=== PATIENT | female | born 2000 | race Caucasian/White ===

== ENCOUNTER 2021-05-22 20:47 | Inpatient (IN) | payer OTHER, SELFPAY ==
--- NOTE | 2021-05-22 20:52 | ED_ITS ---
HPI - Overdose General Chief Complaint: Psychiatric Symptoms Stated Complaint: overdose Time Seen by Provider: 05/22/21 20:52 Source: patient and EMS Mode of arrival: EMS Limitations: no limitations History of Present Illness complaint: intentional overdose Onset (ago): minute(s) (10) Timing confirmed by: other (self) Substance Ingested acetaminophen: Strength of Substance: 500 Number of Pills Ingested: 5 Total Dose: 2500 Intent: suicide attempt How Overdose Was Discovered: called family/friend Context: Intentional Overdose: other Associated symptoms: depression Treatments Prior to Arrival: none Related Data Home Medications Medication Instructions Recorded Confirmed vitamin with calcium 1 tab PO DAILY 05/22/21 05/22/21 no.72-iron 27 mg-folic acid 1 mg tablet (M- Plus) Allergies Allergy/AdvReac Type Severity Reaction Status Date / Time No Known Allergies Allergy Unverified 04/13/20 16:38 [No Known Allergies*] Review of Systems Review of Systems: Constitutional : No Fever, No Chills ENT/Mouth : No Ear Pain, No Nasal Congestion, No sore throat Eyes: No Eye Pain, No Swelling, No Redness Cardiovascular : No Chest Pain, No SOB Respiratory : No Cough, No Sputum, No Dyspnea Gastrointestinal : No Nausea, No Vomiting, No Diarrhea, No Hematochezia, No Melena Genitourinary : No Dysuria, No Urinary Frequency, No Hematuria Musculoskeletal : No Myalgias Skin : No Skin Lesions, No rash Neuro : No Weakness, No Numbness, No Paresthesias, No Dizziness, No Headache Psych : positive Anxiety, positive Depression, positive SI no HI Heme/Lymph: No Lymphadenopathy Endocrine : No Polyuria, No Polydipsia All other systems reviewed and are negative [facility] Past Medical History Attestation statement: The following information was validated with the patient. Medical History Asthma Eczema Social History Social History (Updated 05/22/21 @ 21:07 by Dianna Brock DO) Patient Tobacco Use Status: Never used Tobacco Use of substances other than those prescribed or required for medical reasons: No Advance Directives: No Advance Directives Information Provided: Yes Patient : No Physical Exam Vital Signs: Vital Signs: Last Vital Signs Temp 98.6 F 05/22/21 21:03 Pulse 86 05/22/21 21:03 Resp 20 05/22/21 21:03 BP 117/88 05/22/21 21:03 Pulse Ox 96 05/22/21 21:03 Body Mass Index 30.9 Appearance: Alert. Oriented X3. No acute distress. Tearful Eyes: Pupils equal, round and reactive to light. ENT: Pharynx normal. Neck: Normal inspection. Neck supple. CVS: Normal heart rate and rhythm. Pulses normal. Respiratory: No respiratory distress. Breath sounds normal. Abdomen: Soft and nontender. Skin: Skin warm and dry. Normal skin color. Normal skin turgor. Extremities: No lower extremity edema. No calf ttp Neuro: Oriented X 3. No motor deficit. No sensory deficit. Cn2-12 intact Psych: tearful and anxious Course Course Course Narrative: repeat testing negative, tylenol level 8 - not toxic, medically cleared for BHN Physician observation started at 134am Patient placed in physician observation because the patient needed more time for BHN to evaluate her post SI attempt. At the time observation was started the patient's vitals were stable, patient is alert and oriented, Neuro: nonfocal, CV RRR, Lungs clear MDM - Overdose MDM Narrative Medical decision making narrative: 21 yo female with here with c/o SI she took 5 tabs of 500mg tylenol just prior to arrival in SI attempt. At this time labs, APAP x 2 levels, PO charcoal - once medically cleared BHN consult Lab Data Result diagrams: 05/22/21 21:34 05/23/21 01:04 Labs: Lab Results 05/22/21 05/22/21 05/22/21 Range/Units 21:06 21:06 21:06 WBC (4.8-10.8) X10*3/uL RBC (4.20-5.50) X10*6/uL Hgb (12.0-16.0) g/dl Hct (37-47) % MCV (80-98) fL MCH (27.0-33.0) pg MCHC (31.0-35.0) g/dl RDW (11.0-16.0) % Plt Count (160-400) X10*3/uL MPV (9.4-12.3) fL Immature Gran % (Auto) (0.0-0.4) % Neut % (Auto) (45-73) % Lymph % (Auto) (20-40) % [place] % (Auto) (2-11) % Eos % (Auto) (0-4) % Baso % (Auto) (0-2) % Lymph # (Auto) (1.2-4.9) X10*3/uL [place] # (Auto) (0.1-1.2) X10*3/uL Eos # (Auto) (0.0-0.4) X10*3/uL Baso # (Auto) (0.0-0.2) X10*3/uL Abs Immat Gran (auto) (0.00-0.03) X10*3/uL Absolute Neuts (auto) (2.0-8.3) X10*3/uL Absolute Nucleated RBC (0.0-0.012) X10*3/uL Nucleated RBC % (auto) (0.0-0.2) /100WBC VBG pH (7.32-7.43) VBG pCO2 mmHg VBG pO2 mmHg VBG HCO3 (22-26) mmol/L VBG O2 Saturation % VBG Base Excess mmol/L Sodium (135-145) mmol/L Potassium (3.3-5.1) mmol/L Chloride (96-108) mmol/L Carbon Dioxide (22-29) mmol/L Anion Gap (12-20) BUN (9-16) mg/dL Creatinine (0.5-1.4) mg/dL Estim Creat Clear Calc Estimated GFR Random Glucose (60-115) mg/dL Calcium (8.4-10.2) mg/dL Magnesium (1.6-2.6) mg/dL Total Bilirubin (0.0-1.0) mg/dL Direct Bilirubin (0.0-0.5) mg/dL AST (5-31) U/L ALT (0-31) U/L Alkaline Phosphatase (39-117) U/L Total Protein (6.5-8.0) g/dL Albumin (3.5-5.0) g/dL Lipase (8-78) U/L Beta HCG, Quant mIU/mL Specimen Comment Urine Color YELLOW Urine Appearance HAZY Urine pH 6.0 (5.0-8.0) Ur Specific [place] >= 1.030 H (1.005-1.025) Urine Protein 2+ H (NEG-TRACE) MG/DL Urine Glucose (UA) NEG (NEG) MG/DL Urine Ketones 5 (NEG) MG/DL Urine Blood 3+ H (NEG) Urine Nitrite NEG (NEG) Ur Leukocyte Esterase NEG (NEG) Urine RBC 1-4 (0) /HPF Urine WBC 0 (0-4) /HPF Ur Squamous Epith Cells 1+ /LPF Urine Bacteria 1+ /LPF Urine Mucus 1+ /LPF Salicylates (15-30) mg/dL Urine Opiates Screen POSITIVE H (Not Detect) Urine Fentanyl Screen POSITIVE H (Not Detect) Acetaminophen (<30) mcg/mL Ur Barbiturates Screen Not Detected (Not Detect) Ur Phencyclidine Scrn Not Detected (Not Detect) Ur Amphetamines Screen Not Detected (Not Detect) U Benzodiazepines Scrn Not Detected (Not Detect) Urine Cocaine Screen Not Detected (Not Detect) U Marijuana (THC) Screen POSITIVE H (Not Detect) Ethyl Alcohol mg/dL COVID-19 ([facility]LIN) Negative (Negative) COVID-19 Clin Com See Note 05/22/21 05/22/21 05/22/21 Range/Units 21:33 21:33 21:34 WBC 14.2 H (4.8-10.8) X10*3/uL RBC 5.58 H (4.20-5.50) X10*6/uL Hgb 16.1 H (12.0-16.0) g/dl Hct 48.8 H (37-47) % MCV 87.5 (80-98) fL MCH 28.9 (27.0-33.0) pg MCHC 33.0 (31.0-35.0) g/dl RDW 13.3 (11.0-16.0) % Plt Count 310 (160-400) X10*3/uL MPV 10.7 (9.4-12.3) fL Immature Gran % (Auto) 0.3 (0.0-0.4) % Neut % (Auto) 62.3 (45-73) % Lymph % (Auto) 27.7 (20-40) % [place] % (Auto) 7.3 (2-11) % Eos % (Auto) 1.7 (0-4) % Baso % (Auto) 0.7 (0-2) % Lymph # (Auto) 3.9 (1.2-4.9) X10*3/uL [place] # (Auto) 1.0 (0.1-1.2) X10*3/uL Eos # (Auto) 0.2 (0.0-0.4) X10*3/uL Baso # (Auto) 0.1 (0.0-0.2) X10*3/uL Abs Immat Gran (auto) 0.04 H (0.00-0.03) X10*3/uL Absolute Neuts (auto) 8.8 H (2.0-8.3) X10*3/uL Absolute Nucleated RBC 0.000 (0.0-0.012) X10*3/uL Nucleated RBC % (auto) 0.0 (0.0-0.2) /100WBC VBG pH (7.32-7.43) VBG pCO2 mmHg VBG pO2 mmHg VBG HCO3 (22-26) mmol/L VBG O2 Saturation % VBG Base Excess mmol/L Sodium 143 (135-145) mmol/L Potassium 3.6 (3.3-5.1) mmol/L Chloride 108 (96-108) mmol/L Carbon Dioxide 17 L (22-29) mmol/L Anion Gap 22 H (12-20) BUN 7 L (9-16) mg/dL Creatinine 0.92 (0.5-1.4) mg/dL Estim Creat Clear Calc 98.3 Estimated GFR > 60 Random Glucose 64 (60-115) mg/dL Calcium 10.1 (8.4-10.2) mg/dL Magnesium 1.9 (1.6-2.6) mg/dL Total Bilirubin 0.7 (0.0-1.0) mg/dL Direct Bilirubin 0.3 (0.0-0.5) mg/dL AST 31 (5-31) U/L ALT 25 (0-31) U/L Alkaline Phosphatase 102 (39-117) U/L Total Protein 8.6 H (6.5-8.0) g/dL Albumin 5.0 (3.5-5.0) g/dL Lipase 13 (8-78) U/L Beta HCG, Quant < 2 mIU/mL Specimen Comment Urine Color Urine Appearance Urine pH (5.0-8.0) Ur Specific [place] (1.005-1.025) Urine Protein (NEG-TRACE) MG/DL Urine Glucose (UA) (NEG) MG/DL Urine Ketones (NEG) MG/DL Urine Blood (NEG) Urine Nitrite (NEG) Ur Leukocyte Esterase (NEG) Urine RBC (0) /HPF Urine WBC (0-4) /HPF Ur Squamous Epith Cells /LPF Urine Bacteria /LPF Urine Mucus /LPF Salicylates < 5.0 L (15-30) mg/dL Urine Opiates Screen (Not Detect) Urine Fentanyl Screen (Not Detect) Acetaminophen 21 (<30) mcg/mL Ur Barbiturates Screen (Not Detect) Ur Phencyclidine Scrn (Not Detect) Ur Amphetamines Screen (Not Detect) U Benzodiazepines Scrn (Not Detect) Urine Cocaine Screen (Not Detect) U Marijuana (THC) Screen (Not Detect) Ethyl Alcohol 51 mg/dL COVID-19 ([facility]) (Negative) COVID-19 Clin Com 05/22/21 05/23/21 05/23/21 Range/Units 21:40 01:04 01:27 WBC (4.8-10.8) X10*3/uL RBC (4.20-5.50) X10*6/uL Hgb (12.0-16.0) g/dl Hct (37-47) % MCV (80-98) fL MCH (27.0-33.0) pg MCHC (31.0-35.0) g/dl RDW (11.0-16.0) % Plt Count (160-400) X10*3/uL MPV (9.4-12.3) fL Immature Gran % (Auto) (0.0-0.4) % Neut % (Auto) (45-73) % Lymph % (Auto) (20-40) % [place] % (Auto) (2-11) % Eos % (Auto) (0-4) % Baso % (Auto) (0-2) % Lymph # (Auto) (1.2-4.9) X10*3/uL [place] # (Auto) (0.1-1.2) X10*3/uL Eos # (Auto) (0.0-0.4) X10*3/uL Baso # (Auto) (0.0-0.2) X10*3/uL Abs Immat Gran (auto) (0.00-0.03) X10*3/uL Absolute Neuts (auto) (2.0-8.3) X10*3/uL Absolute Nucleated RBC (0.0-0.012) X10*3/uL Nucleated RBC % (auto) (0.0-0.2) /100WBC VBG pH 7.36 (7.32-7.43) VBG pCO2 35 mmHg VBG pO2 48 mmHg VBG HCO3 20 L (22-26) mmol/L VBG O2 Saturation 71.0 % VBG Base Excess -4.5 mmol/L Sodium 140 (135-145) mmol/L Potassium 4.0 (3.3-5.1) mmol/L Chloride 105 (96-108) mmol/L Carbon Dioxide 21 L (22-29) mmol/L Anion Gap 18 (12-20) BUN 7 L (9-16) mg/dL Creatinine 0.82 (0.5-1.4) mg/dL Estim Creat Clear Calc 110.2 Estimated GFR > 60 Random Glucose 77 (60-115) mg/dL Calcium 9.7 (8.4-10.2) mg/dL Magnesium (1.6-2.6) mg/dL Total Bilirubin 0.8 (0.0-1.0) mg/dL Direct Bilirubin 0.3 (0.0-0.5) mg/dL AST 31 (5-31) U/L ALT 24 (0-31) U/L Alkaline Phosphatase 98 (39-117) U/L Total Protein 8.1 H (6.5-8.0) g/dL Albumin 4.8 (3.5-5.0) g/dL Lipase (8-78) U/L Beta HCG, Quant mIU/mL Specimen Comment DELAY Urine Color Urine Appearance Urine pH (5.0-8.0) Ur Specific [place] (1.005-1.025) Urine Protein (NEG-TRACE) MG/DL Urine Glucose (UA) (NEG) MG/DL Urine Ketones (NEG) MG/DL Urine Blood (NEG) Urine Nitrite (NEG) Ur Leukocyte Esterase (NEG) Urine RBC (0) /HPF Urine WBC (0-4) /HPF Ur Squamous Epith Cells /LPF Urine Bacteria /LPF Urine Mucus /LPF Salicylates < 5.0 L (15-30) mg/dL Urine Opiates Screen (Not Detect) Urine Fentanyl Screen (Not Detect) Acetaminophen 8 (<30) mcg/mL Ur Barbiturates Screen (Not Detect) Ur Phencyclidine Scrn (Not Detect) Ur Amphetamines Screen (Not Detect) U Benzodiazepines Scrn (Not Detect) Urine Cocaine Screen (Not Detect) U Marijuana (THC) Screen (Not Detect) Ethyl Alcohol mg/dL COVID-19 ([facility]) (Negative) COVID-19 Clin Com ECG Data Attestation: I personally reviewed and interpreted this ECG as follows: ECG interpretation date: 05/22/21 ECG interpretation time: 23:27 Interpretation: Rate: 61 Rhythm: NSR [place]: left, LVH Normal P waves. Normal GILBERT. Normal QRS complex. ST T wave : normal no SHIVA qTC: normal prior studies: no acute ischemia The study has been interpreted contemporaneously by me. . Discharge Plan Discharge Clinical Impression: Overdose by acetaminophen Qualifiers: Encounter type: initial encounter Injury intent: intentional self-harm Qualified Code(s): T39.1X2A - Poisoning by 4-Aminophenol derivatives, intentional self-harm, initial encounter Prescriptions: No Action M- Plus 27 mg iron- 1 mg tablet 1 tab PO DAILY RF: 0
--- NOTE | 2021-05-22 20:56 | ECG_ITS ---
Test Reason : MEDICAL CLEARANCE Blood Pressure : / mmHG Vent. Rate : 061 BPM Atrial Rate : 061 BPM P-R Int : 134 ms QRS Dur : 088 ms QT Int : 408 ms P-R-T Axes : 032 -24 010 degrees QTc Int : 410 ms Sinus rhythm with marked sinus arrhythmia Early repolarization Minimal voltage criteria for LVH, may be normal variant ( R in aVL ) Borderline ECG No previous ECGs available Referred By: Dianna Brock Electronically Signed By:YANNICK FLORES MD
[2021-05-22 21:03] VITALS: BP 117/88; PULSE 86; RESP 20; TEMP 37; O2SAT 96; BMI 30.9
[2021-05-22] MEDS: Activated charcoaL 50 GM/240 ML ORAL.SUSP PO (21:19)
[2021-05-22 21:28] LABS: Appearance Urine HAZY; Color Urine YELLOW; Glucose Urine UA NEG (NEG); Leukocyte Esterase Urine NEG (NEG); Nitrite Urine NEG (NEG); Specific Gravity - Urine >= 1.030 (1.005-1.025); UACC Culture Trigger NO; Urine Blood 3+ (NEG); Urine Ketones 5 MG/DL (NEG); Urine Protein 2+ MG/DL (NEG-TRACE)
--- NOTE | 2021-05-22 21:30 | PHA.MEDREC ---
Pharmacy Consult ? Medication Reconciliation Pharmacy has completed the medication reconciliation. Reports only taking pre-elizabeth vitamins Jerica Hearn, YaraD
[2021-05-22 21:35] LABS: Bacteria Urine 1+ /LPF; Mucus Urine 1+ /LPF; Squamous Epithelial Cell Urine 1+ /LPF
[2021-05-22 21:37] LABS: WBC Urine 0 /HPF (0-4)
[2021-05-22 21:38] LABS: COVID-19 Test Negative (Negative); IDNOW Serial# 55D5AD1C
[2021-05-22 21:40] LABS: MANUAL DIFF FLAG NO
[2021-05-22 21:43] LABS: Basophils Absolute Auto 0.1 X10*3/uL (0.0-0.2); Basophils Percent Auto 0.7 % (0-2); Eosinophils Absolute Auto 0.2 X10*3/uL (0.0-0.4); Eosinophils Percent Auto 1.7 % (0-4); Hematocrit 48.8 % (37-47); Hemoglobin 16.1 g/dl (12.0-16.0); Imm Gran Abs Auto 0.04 X10*3/uL (0.00-0.03); Imm Gran Pct Auto 0.3 % (0.0-0.4); Lymphocytes Absolute Auto 3.9 X10*3/uL (1.2-4.9); Lymphocytes Percent Auto 27.7 % (20-40); Mean Corpuscular Hemoglobin 28.9 pg (27.0-33.0); Mean Corpuscular Volume 87.5 fL (80-98); Mean Platelet Volume 10.7 fL (9.4-12.3); Monocytes Percent Auto 7.3 % (2-11); Neutrophils Absolute Auto 8.8 X10*3/uL (2.0-8.3); Neutrophils Percent Auto 62.3 % (45-73); Platelet Count 310 X10*3/uL (160-400); Red Blood Count 5.58 X10*6/uL (4.20-5.50); Red Cell Distribution Width 13.3 % (11.0-16.0); White Blood Count 14.2 X10*3/uL (4.8-10.8)
[2021-05-22 21:43] LABS: Amphetamine Screen Urine Not Detected (Not Detect); Barbiturates, Urine Not Detected (Not Detect); Benzodiazepines Screen Urine Not Detected (Not Detect); Cannabinoid Screen Urine POSITIVE (Not Detect); Cocaine Screen Urine Not Detected (Not Detect); Fentanyl, urine POSITIVE (Not Detect); Opiate Screen Urine POSITIVE (Not Detect); Phencyclidine Screen Urine Not Detected (Not Detect)
[2021-05-22 21:47] LABS: VBG Base Excess -4.5 mmol/L; VBG HCO3 20 mmol/L (22-26); VBG pCO2 35 mmHg; VBG pH 7.36 (7.32-7.43); VBG pO2 48 mmHg
[2021-05-22 21:53] LABS: Ethanol 51 mg/dL
[2021-05-22 21:59] LABS: Venous Blood Gas Refer to POC result
[2021-05-22 22:02] LABS: Alanine Aminotransferase 25 U/L (0-31); Alkaline Phosphatase 102 U/L (39-117); Anion Gap 22 (12-20); Aspartate Amino Transferase 31 U/L (5-31); Bilirubin Direct 0.3 mg/dL (0.0-0.5); Bilirubin Total 0.7 mg/dL (0.0-1.0); Blood Urea Nitrogen 7 mg/dL (9-16); Calcium 10.1 mg/dL (8.4-10.2); Carbon Dioxide 17 mmol/L (22-29); Chloride 108 mmol/L (96-108); Creatinine Clr Calc Pharmacy 98.3; Estimated Glomerular Filt Rate > 60; Glucose Random 64 mg/dL (60-115); Lipase 13 U/L (8-78); Magnesium 1.9 mg/dL (1.6-2.6); Potassium 3.6 mmol/L (3.3-5.1); Salicylate < 5.0 mg/dL (15-30); Sodium 143 mmol/L (135-145); Total Protein 8.6 g/dL (6.5-8.0)
--- NOTE | 2021-05-22 22:23 | MHC.CARE ---
CARE team aware of pt, who arrived via ambulance secondary to an intentional tylenol overdose. Pt will need to be medically cleared before evaluation. She has [employer] insurance and will be seen by CARE team in the morning.
[2021-05-22 22:56] LABS: Acetaminophen LAB 21 mcg/mL (<30)
[2021-05-22 23:04] LABS: HCG Quantitative < 2 mIU/mL
[2021-05-23 01:28] LABS: Delay - Chemistry DELAY
[2021-05-23 01:28] LABS: Acetaminophen LAB 8 mcg/mL (<30); Alanine Aminotransferase 24 U/L (0-31); Albumin Level 4.8 g/dL (3.5-5.0); Alkaline Phosphatase 98 U/L (39-117); Anion Gap 18 (12-20); Aspartate Amino Transferase 31 U/L (5-31); Bilirubin Direct 0.3 mg/dL (0.0-0.5); Bilirubin Total 0.8 mg/dL (0.0-1.0); Blood Urea Nitrogen 7 mg/dL (9-16); Calcium 9.7 mg/dL (8.4-10.2); Carbon Dioxide 21 mmol/L (22-29); Chloride 105 mmol/L (96-108); Creatinine Clr Calc Pharmacy 110.2; Estimated Glomerular Filt Rate > 60; Glucose Random 77 mg/dL (60-115); Sodium 140 mmol/L (135-145); Total Protein 8.1 g/dL (6.5-8.0)
[2021-05-23 02:15] LABS: Salicylate < 5.0 mg/dL (15-30)
[2021-05-23 05:39] VITALS: BP 114/78; PULSE 58; RESP 16; TEMP 37.2; O2SAT 97
--- NOTE | 2021-05-23 05:59 | PC.NURSE ---
Patient slept through the night, patient was at time tearful but after making phone call patient calmed down, labs were done twice result unremarkable, since the amount ingested of Tylenol was 3500 mg, poison control was not notified per provider, patient is clinically stable, no distress observed/reported, patient will be evaluated by Care Team in the morning, behavior appropriate, patient appears stressed due to living situation, patient was visited by her brother was positive visit, will continue to monitor.
--- NOTE | 2021-05-23 07:16 | PC.NURSE ---
patient appears to remain asleep at present, respirations are even and unlabored, patient appears in no distress
[2021-05-23 09:06] VITALS: BP 110/80; PULSE 65; RESP 16; TEMP 36.8; O2SAT 98
--- NOTE | 2021-05-23 12:54 | MHC.RECOVSUP ---
Recovery Support note: Patient is a 21 year old [place] speaking female who presented to [facility] after an intentional Tylenol overdose. CARE Team requested the Recovery Support Team meet with patient to discuss recovery supports. This contract technical writer met with patient in BH3. Patient reports using one pill of what she believes to be Percocet daily and that this pattern began two months ago. Patient reports a desire to stop using however reports withdrawal symptoms have prevented her from stopping. Discussed medications for opiate use disorder with patient. Patient accepted education on Suboxone and expressed interest in getting started on the medication. Patient reports she lives within walking distance of the [facility] and that she would like to establish services with their Suboxone clinic. Patient will be admitting to [facility] and would like to get started on Suboxone while in the Hospital. Discussed outpatient recovery supports with patient. Case discussed with CARE Team and Recovery Support Team.
[2021-05-23 19:46] VITALS: BP 118/83; PULSE 76; RESP 18; TEMP 36.6; O2SAT 96
[2021-05-23] MEDS: hydrOXYzine HCL 25 MG TABLET PO (21:49)
[2021-05-23] MEDS: traZODone HCL 50 MG TABLET PO (22:50)
--- NOTE | 2021-05-24 00:39 | PC.ADMIT ---
Patient admitted to [facility]3 at 1945 from the ED. Patient is a 21 year old female that attempted suicide by ingestion of 5 (500 mg) Tylenol tablets . Patient stated that she was overwhelmed this week due to financial issues and is in danger of being evicted from her home. Patient UTOX was positive for opiates and Fentanyl. Patient covid negative. Patient signed a CV. Patient reports feeling depressed and overwhelmed with life, States she made a stupid mistake Patient denies SI/HI and contracts for safety on the uit. Patient denies any AH/VH. Patient was cooperative with nurse assessment and placed on 15 minute safety visual checks.
[2021-05-24 07:00] VITALS: BMI 28.7
--- NOTE | 2021-05-24 11:44 | MHC.RECOVRN ---
T/w met with pt after consult placed to Addiction Medicine for pt interested in Suboxone. Pt reports using Percocet 30 mg daily, IN, x 4 months. Pt was not aware the pills were pressed fentanyl. Pts last use 05/22 around 6PM. Pt currently reports hot/cold flashes and a slightly runny nose. Pt denies other withdrawal symptoms including body aches and upset stomach. Pt denies ever feeling severe withdrawal. Pt began using 4 months ago when a friend said try this. Pt reports using marijuana, denies other substances. Pt has never injected substances. Pt educated regarding Suboxone and other MOUD, denies questions. Pt would like to initiate Suboxone while inpatient and follow up with the [facility] after discharge. Pt provided with written information regarding MOUD and recovery resources. Pt has been ordered Suboxone 2/0.5 mg film by psych provider. Discussed with Camilla Toney APRN. Will continue to follow.
[2021-05-24] MEDS: Multivitamin TABLET 1 TAB PO (12:01)
[2021-05-24 14:00] VITALS: BP 120/72; PULSE 87; RESP 16; TEMP 36.7; O2SAT 97
[2021-05-24] MEDS: Buprenorphine/Naloxone 2/0.5mg FILM 1 FILM SUBLINGUAL (15:43)
[2021-05-24 18:00] VITALS: BP 108/73; PULSE 96; RESP 88; TEMP 36.7; O2SAT 97
--- NOTE | 2021-05-24 18:05 | HO.ADDICTCON ---
History of Present Illness Date of Service: 05/24/2021 Chief Complaint: suicide attempt Reason for Consult: OUD would like to start buprenorphine Requesting physician: Pj Joyce Discussed with referring provider: Yes Sources of Information: patient interviewed and chart reviewed HPI Narrative: Patient is a 21 year old female currently psychiatrically admitted following tylenol overdose. Consult requested as patient reported she has been using percocet and intereted in treatment Patient seen in common area of M3. Wrapped in blanket, very pleasant and engaged in interview. Reports she has been buying percocet on the street since this summer and using about 30mg a day--but also clarifying that she does not always use daily. She has tried to stop on her own, but withdrawal sx always led her to use again. She had been contemplating entering treatment prior to this admission. At time of interview patient reporting very mild withdrawal sx--and states that she has never experienced sever withdrawal Denies any history of opioid OD Denies any other substance use including alcohol Denies any history of MOUD or other treatment including ATS admission Reports family history of MIROSLAVA (father and grandfather) She lives with her boyfriend and is employed at a local [employer] while she identifies her family as a strong support, she has not shared with them that she is admitted as she does not want to be a burden Review of Systems Comments: patient reporting mild body aches, rhinorrhea, chills and anxiety denies nausea,loose stools Diagnostics Vital Signs (24Hr): Vital Signs - 24 hr 05/23/21 19:46 05/24/21 14:00 Temperature 97.8 F 98.0 F Pulse Rate 76 87 Respiratory Rate 18 16 Blood Pressure 118/83 120/72 Pulse Oximetry 96 97 Body Mass Index 28.7 Labs Results: 05/22/21 21:34 05/23/21 01:04 Labs: Laboratory Results - last 48 hr 05/22/21 05/22/21 05/22/21 21:06 21:06 21:06 WBC RBC Hgb Hct MCV MCH MCHC RDW Plt Count MPV Immature Gran % (Auto) Neut % (Auto) Lymph % (Auto) [place] % (Auto) Eos % (Auto) Baso % (Auto) Lymph # (Auto) [place] # (Auto) Eos # (Auto) Baso # (Auto) Abs Immat Gran (auto) Absolute Neuts (auto) Absolute Nucleated RBC Nucleated RBC % (auto) VBG pH VBG pCO2 VBG pO2 VBG HCO3 VBG O2 Saturation VBG Base Excess Sodium Potassium Chloride Carbon Dioxide Anion Gap BUN Creatinine Estim Creat Clear Calc Estimated GFR Random Glucose Calcium Magnesium Total Bilirubin Direct Bilirubin AST ALT Alkaline Phosphatase Total Protein Albumin Lipase Beta HCG, Quant Specimen Comment Urine Color YELLOW Urine Appearance HAZY Urine pH 6.0 Ur Specific [place] >= 1.030 H Urine Protein 2+ H Urine Glucose (UA) NEG Urine Ketones 5 Urine Blood 3+ H Urine Nitrite NEG Ur Leukocyte Esterase NEG Urine RBC 1-4 Urine WBC 0 Ur Squamous Epith Cells 1+ Urine Bacteria 1+ Urine Mucus 1+ Salicylates Urine Opiates Screen POSITIVE H Urine Fentanyl Screen POSITIVE H Acetaminophen Ur Barbiturates Screen Not Detected Ur Phencyclidine Scrn Not Detected Ur Amphetamines Screen Not Detected U Benzodiazepines Scrn Not Detected Urine Cocaine Screen Not Detected U Marijuana (THC) Screen POSITIVE H Ethyl Alcohol COVID-19 (DAYLIN) Negative COVID-19 Clin Com See Note 05/22/21 05/22/21 05/22/21 21:33 21:33 21:34 WBC 14.2 H RBC 5.58 H Hgb 16.1 H Hct 48.8 H MCV 87.5 MCH 28.9 MCHC 33.0 RDW 13.3 Plt Count 310 MPV 10.7 Immature Gran % (Auto) 0.3 Neut % (Auto) 62.3 Lymph % (Auto) 27.7 [place] % (Auto) 7.3 Eos % (Auto) 1.7 Baso % (Auto) 0.7 Lymph # (Auto) 3.9 [place] # (Auto) 1.0 Eos # (Auto) 0.2 Baso # (Auto) 0.1 Abs Immat Gran (auto) 0.04 H Absolute Neuts (auto) 8.8 H Absolute Nucleated RBC 0.000 Nucleated RBC % (auto) 0.0 VBG pH VBG pCO2 VBG pO2 VBG HCO3 VBG O2 Saturation VBG Base Excess Sodium 143 Potassium 3.6 Chloride 108 Carbon Dioxide 17 L Anion Gap 22 H BUN 7 L Creatinine 0.92 Estim Creat Clear Calc 98.3 Estimated GFR > 60 Random Glucose 64 Calcium 10.1 Magnesium 1.9 Total Bilirubin 0.7 Direct Bilirubin 0.3 AST 31 ALT 25 Alkaline Phosphatase 102 Total Protein 8.6 H Albumin 5.0 Lipase 13 Beta HCG, Quant < 2 Specimen Comment Urine Color Urine Appearance Urine pH Ur Specific [place] Urine Protein Urine Glucose (UA) Urine Ketones Urine Blood Urine Nitrite Ur Leukocyte Esterase Urine RBC Urine WBC Ur Squamous Epith Cells Urine Bacteria Urine Mucus Salicylates < 5.0 L Urine Opiates Screen Urine Fentanyl Screen Acetaminophen 21 Ur Barbiturates Screen Ur Phencyclidine Scrn Ur Amphetamines Screen U Benzodiazepines Scrn Urine Cocaine Screen U Marijuana (THC) Screen Ethyl Alcohol 51 COVID-19 (DAYLIN) COVID-19 Culture Jam Com 05/22/21 05/23/21 05/23/21 21:40 01:04 01:27 WBC RBC Hgb Hct MCV MCH MCHC RDW Plt Count MPV Immature Gran % (Auto) Neut % (Auto) Lymph % (Auto) [place] % (Auto) Eos % (Auto) Baso % (Auto) Lymph # (Auto) [place] # (Auto) Eos # (Auto) Baso # (Auto) Abs Immat Gran (auto) Absolute Neuts (auto) Absolute Nucleated RBC Nucleated RBC % (auto) VBG pH 7.36 VBG pCO2 35 VBG pO2 48 VBG HCO3 20 L VBG O2 Saturation 71.0 VBG Base Excess -4.5 Sodium 140 Potassium 4.0 Chloride 105 Carbon Dioxide 21 L Anion Gap 18 BUN 7 L Creatinine 0.82 Estim Creat Clear Calc 110.2 Estimated GFR > 60 Random Glucose 77 Calcium 9.7 Magnesium Total Bilirubin 0.8 Direct Bilirubin 0.3 AST 31 ALT 24 Alkaline Phosphatase 98 Total Protein 8.1 H Albumin 4.8 Lipase Beta HCG, Quant Specimen Comment DELAY Urine Color Urine Appearance Urine pH Ur Specific [place] Urine Protein Urine Glucose (UA) Urine Ketones Urine Blood Urine Nitrite Ur Leukocyte Esterase Urine RBC Urine WBC Ur Squamous Epith Cells Urine Bacteria Urine Mucus Salicylates < 5.0 L Urine Opiates Screen Urine Fentanyl Screen Acetaminophen 8 Ur Barbiturates Screen Ur Phencyclidine Scrn Ur Amphetamines Screen U Benzodiazepines Scrn Urine Cocaine Screen U Marijuana (THC) Screen Ethyl Alcohol COVID-19 (DAYLIN) COVID-19 Clin Com Mental Status Exam Mental Status Exam Patient Appearance: Appropriate Patient Orientation: Person, Place, Time and Situation Level of Consciousness: Awake, Appropriate and Alert Patient Behavior: Cooperative Mood Description: Calm, Appropriate and Sad Affect Description: Blunted Patient Cognition Impaired: No Thought Process: Goal Oriented Judgement: Good Medications Medications Current Medications Acetaminophen (Acetaminophen 325 Mg Tablet) 650 mg PO Q6H PRN PRN Reason: Headache/Pain Mild Scale (1-3) Al Hydroxide/Mg Hydroxide (Magnesium Hydrox/Alum Hydrox 30 Ml Oral.Susp) 30 ml PO Q6H PRN PRN Reason: Heartburn/Nausea Albuterol Sulfate (Albuterol Sulfate 90 Mcg 8 Gm Inhaler) 2 puff INHALE RQ6H PRN PRN Reason: Shortness of Breath Buprenorphine/Naloxone (Buprenorphine/Naloxone 2/0.5mg Film) 1 film SUBLINGUAL DAILY NIGEL Clonidine HCl (Clonidine Hcl 0.1 Mg Tablet) 0.1 mg PO Q2H PRN; Protocol PRN Reason: opioid withdrawal Dicyclomine HCl (Dicyclomine Hcl 10 Mg Capsule) 10 mg PO QIDACHS PRN PRN Reason: stomach cramps Hydroxyzine HCl (Hydroxyzine Hcl 25 Mg Tablet) 25 mg PO BEDTIME PRN PRN Reason: Anxiety Last Admin: 05/23/21 21:49 Dose: 25 mg Documented by: Ibuprofen (Ibuprofen 800 Mg Tablet) 800 mg PO Q6H PRN PRN Reason: aches Loperamide HCl (Loperamide Hcl 2 Mg Capsule) 2 mg PO Q4H PRN PRN Reason: Diarrhea Magnesium Hydroxide (Milk Of Magnesia 30 Ml Oral.Susp) 30 ml PO DAILY PRN PRN Reason: Constipation Multivitamins/Vitamin C (Multivitamin Tablet) 1 tab PO DAILY NIGEL Last Admin: 05/24/21 12:01 Dose: 1 tab Documented by: Nicotine Polacrilex (Nicotine Polacrilex 2 Mg Gum) 2 mg BUCCAL Q2H PRN PRN Reason: Nicotine Cravings Trazodone HCl (Trazodone Hcl 50 Mg Tablet) 50 mg PO BEDTIME PRN PRN Reason: Insomnia Last Admin: 05/23/21 22:50 Dose: 50 mg Documented by: Triamcinolone Acetonide (Triamcinolone Acet 0.1 % Cream 15 Gm Tube) 1 appl TOPICAL DAILY NIGEL; Protocol Last Admin: 05/24/21 15:44 Dose: Not Given Documented by: Allergies Allergies Allergy/AdvReac Type Severity Reaction Status Date / Time No Known Allergies Allergy Unverified 04/13/20 16:38 [No Known Allergies*] Assessment & Plan Assessment & Plan (1) Opioid use disorder: Status: Acute Code(s): F11.90 - Opioid use, unspecified, uncomplicated Assessment and Plan: Patient to start suboxone 2mg when she feels ready (symptomatic) Reviewed goals of treatment side effects Follow up in AM to determine if dose needs to be increased discussed with RN, treating proivder and recovery support RN I spent ___40___ minutes with the patient and/or on the patient floor today, greater than?50% of which was spent counseling/coordinating care. PMFSH Past Medical History Medical History Asthma Eczema Social History Social History (Updated 05/22/21 @ 21:07 by Dianna Brock DO) Household Members: Significant Other Household Members Other:: none Housing: House Do you presently have visiting nurse or other home services: No Patient Tobacco Use Status: Current everyday Tobacco user Tobacco use type: Cigarette Cigarette Packs Per Day: 0.1 Cigarettes Per Day: 2.0 Smoked in Last 30 Days: Yes Patient Interested in Nicotine Replacement: No Patient Given Instructions on How to Stop Smoking: Yes Date Education Initiated: 05/23/21 Second Hand Smoke Exposure: Yes Use of substances other than those prescribed or required for medical reasons: No Substance Use Type: Other Substance Use Type Other:: fentyl daily Substance Use Frequency: Daily Last Used Substance: Days (ago) Currently Displaying Signs/Symptoms of Drug Intoxication Withdrawal: No Any prior treatment program specific to substance use: No Have you been hit, kicked, punched, or otherwise hurt by someone within the past year? If so, by whom?: No Do you feel safe in your current relationship?: Yes Is there a partner from a previous relationship who is making you feel unsafe now?: No Are you made to feel afraid or neglected: No Spiritual Healthcare Practices: none Confucianism Healthcare Practices: none Cultural Healthcare Practices: none Advance Directives: No Advance Directives Information Provided: Yes Advance Directives on File: No Healthcare Proxy: No Guardian: No Do you have thoughts of harming others: None Do you have a plan to hurt others: No Plan Recently lost weight without trying: No Eating poorly because of decreased appetite: No Nutrition Risks: No Nutritional Risk Patient : No : No Poor oral hygiene: No service: No Sexual orientation: Straight/Heterosexual
[2021-05-24] MEDS: Triamcinolone Acet 0.1 % Cream 15 GM TUBE 1 APPL TOPICAL (18:53)
[2021-05-24] MEDS: Nicotine Polacrilex 2 MG GUM BUCCAL (20:24)
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
[2021-05-24] MEDS: traZODone HCL 50 MG TABLET PO (23:40)
[2021-05-25] MEDS: Triamcinolone Acet 0.1 % Cream 15 GM TUBE 1 APPL TOPICAL (09:54)
[2021-05-25] MEDS: Multivitamin TABLET 1 TAB PO (09:54)
[2021-05-25] MEDS: Buprenorphine/Naloxone 2/0.5mg FILM 1 FILM SUBLINGUAL (09:54)
[2021-05-25] MEDS: Nicotine Polacrilex 2 MG GUM BUCCAL (11:16)
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
--- NOTE | 2021-05-25 13:36 | MHC.RECOVRN ---
Met with pt this morning to f/u regarding Suboxone initiation. Pt reports feeling better. Pt states I had the chills every day since I was here, the Suboxone definitely helped with that. Pt would like to continue with 2/0.5 mg film daily. SW has made f/u appt for pt at the [facility] and bridge script has been sent to pts pharmacy. Pt encouraged to reach out to t/w if questions or concerns arise. Discussed with Camilla Toney APRN.
== END 2021-05-25 12:45 | disposition home or self-care (01) | DRG 882 ==
LOC: HO.ED 21:16 → HO.PADLT16 05-23 18:45
PROVIDERS: Admitting Provider Psychiatry & Neurology Psychiatry; Emergency Provider Emergency Medicine; Visit Provider Psychiatry & Neurology Psychiatry
DX: F43.20 Adjustment disorder, unspecified (principal); R45.851 Suicidal ideations; F11.20 Opioid dependence, uncomplicated; F17.210 Nicotine dependence, cigarettes, uncomplicated; Z71.6 Tobacco abuse counseling; Z91.51 Personal history of suicidal behavior; Z20.822 Contact with and (suspected) exposure to COVID-19; Z79.899 Other long term (current) drug therapy
CPT/HCPCS: 36415; 80048; 80076; 80143; 80179; 80307; 81001; 82077; 82803; 83690; 83735; 84702; 85025; 87635; 93005; 99285

== ENCOUNTER 2021-06-06 23:41 | Emergency (ER) | payer OTHER, SELFPAY ==
--- NOTE | ~2021-06-06 | XR_ITS ---
EXAMINATION: XR CHEST CLINICAL INFORMATION: Shortness of breath COMPARISON: None TECHNIQUE: Frontal view of the chest was obtained. FINDINGS: The lungs are well expanded. There is no focal consolidation, edema, or effusion. No pneumothorax. The cardiomediastinal silhouette is within normal limits. No acute osseous abnormality. XR/XR chest 1V IMPRESSION: Clear lungs.
[2021-06-06 23:50] VITALS: BP 161/89; PULSE 119; RESP 22; TEMP 36.6; O2SAT 93; BMI 30.2
--- NOTE | 2021-06-06 23:58 | ECG_ITS ---
Test Reason : SOB Blood Pressure : / mmHG Vent. Rate : 120 BPM Atrial Rate : 120 BPM P-R Int : 152 ms QRS Dur : 086 ms QT Int : 314 ms P-R-T Axes : 075 093 030 degrees QTc Int : 443 ms Sinus tachycardia Rightward axis Borderline ECG When compared with ECG of 22-MAY-2021 23:24, Vent. rate has increased BY 59 BPM Questionable change in QRS axis T wave amplitude has decreased in Anterolateral leads Referred By: Roseann Hardy Electronically Signed By:YANNICK FLORES MD
--- NOTE | 2021-06-06 23:58 | ED_ITS ---
HPI - Asthma General Chief Complaint: Asthma <PHANI Pritchett - Last Filed: 06/07/21 02:30> Stated Complaint: SoB, asthma <PHANI Pritchett - Last Filed: 06/07/21 02:30> Time Seen by Provider: 06/06/21 23:54 <PHANI Pritchett Last Filed: 06/07/21 02:30> Source: patient <PHANI Pritchett Last Filed: 06/07/21 02:30> Mode of arrival: ambulatory <PHANI Pritchett Last Filed: 06/07/21 02:30> Limitations: no limitations <PHANI Pritchett Last Filed: 06/07/21 02:30> History of Present Illness HPI Narrative: 18-year-old female past medical history significant for asthma, and opiate use disorder presents to the emergency department with shortness of breath, and what feels like an asthma attack that is a little worse than usual that started around 4:00 p.m. today. Patient states that she took her albuterol inhaler about 10 times with no relief. Patient states that before 4:00 p.m. she was feeling fine she had a dry cough for a few days. She is not vaccinated against COVID-19. She is a current daily smoker. She has never required intubation for her asthma. She denies fevers, chills, chest pain, nausea, vomiting, abdominal pain. <PHANI Pritchett Last Filed: 06/07/21 02:30> MD complaint: asthma attack and shortness of breath <PHANI Pritchett Last Filed: 06/07/21 02:30> Onset (ago): hour(s) (8) <PHANI Pritchett Last Filed: 06/07/21 02:30> Severity: severe and worse than usual <PHANI Pritchett Last Filed: 06/07/21 02:30> Context: other (patient reports a cough dry in nature ) <PHANI Pritchett Last Filed: 06/07/21 02:30> Related Data Home Medications: Home Medications Medication Instructions Recorded Confirmed vitamin with calcium 1 tab PO DAILY 05/22/21 05/22/21 no.72-iron 27 mg-folic acid 1 mg tablet (M-Prince Plus) Previous Rx's Medication Instructions Recorded albuterol sulfate 90 mcg/actuation 2 puff INHALATION RQ6H PRN 30 Days 05/25/21 aerosol inhaler (Ventolin HFA) #1 g buprenorphine 2 mg-naloxone 0.5 mg 1 film SUBLINGUAL DAILY 7 Days #7 05/25/21 sublingual film (Suboxone) ea nicotine (polacrilex) 2 mg gum 2 mg BUCCAL Q2H PRN 30 Days #90 ea 05/25/21 triamcinolone acetonide 0.1 % 1 appl TOPICAL DAILY 30 Days #50 g 05/25/21 topical cream benzonatate 100 mg capsule 100 mg PO BID PRN #14 cap 06/07/21 prednisone 20 mg tablet 40 mg PO DAILY 5 Days #10 tab 06/07/21 <PHANI Pritchett - Last Filed: 06/07/21 02:30> Allergies/Adverse Reactions: Allergies Allergy/AdvReac Type Severity Reaction Status Date / Time No Known Allergies Allergy Verified 06/06/21 23:50 [No Known Allergies*] <PHANI Pritchett Last Filed: 06/07/21 02:30> Review of Systems Review of Systems: Constitutional : No Weight loss, No Fever, No Chills, No Fatigue, No Malaise ENT/Mouth : No sore throat, No Rhinorrhea Eyes: No Eye Pain, No Swelling, No Redness Cardiovascular : No Chest Pain, + SOB, No Dyspnea on Exertion, No Orthopnea, No Edema, No Palpitations Respiratory : + Cough, No Sputum, + Wheezing Gastrointestinal : No Nausea, No Vomiting, No Diarrhea, No Constipation, No abdominal Pain, No Hematochezia, No Melena Genitourinary : No Dysuria, No Urinary Frequency, No Hematuria, Musculoskeletal : No joint pain, No Myalgias, No Joint Swelling Skin : No Skin Lesions, No rash Neuro : No Weakness, No Numbness, No Dizziness, No Headache All other systems reviewed and are negative <PHANI Pritchett - Last Filed: 06/07/21 02:30> [facility] Past Medical History Attestation statement: The following information was validated with the patient. <PHANI Pritchett - Last Filed: 06/07/21 02:30> Source: old records reviewed and nursing notes reviewed <PHANI Pritchett - Last Filed: 06/07/21 02:30> Medical History: Medical History Asthma Eczema <PHANI Pritchett - Last Filed: 06/07/21 02:30> Social History Social History: Social History (Updated 05/22/21 @ 21:07 by Dianna Brock DO) Household Members: Significant Other Household Members Other:: none Housing: House Do you presently have visiting nurse or other home services: No Patient Tobacco Use Status: Current everyday Tobacco user Tobacco use type: Cigarette Cigarette Packs Per Day: 0.1 Cigarettes Per Day: 2.0 Second Hand Smoke Exposure: Yes Substance Use Type: Other Advance Directives: No Patient : No service: No Sexual orientation: Straight/Heterosexual <PHANI Pritchett - Last Filed: 06/07/21 02:30> Physical Exam Vital Signs: Vital Signs: Last Vital Signs Temp 98.3 F 06/07/21 04:19 Pulse 103 H 06/07/21 04:19 Resp 15 06/07/21 04:19 BP 132/82 06/07/21 04:19 Pulse Ox 97 06/07/21 04:19 Body Mass Index 30.2 Vital signs show patient to be hypertensive 161/89, patient is tachycardic 119, tachypneic 22. <PHANI Pritchett - Last Filed: 06/07/21 02:30> Vital Signs: Last Vital Signs Temp 98.3 F 06/07/21 04:19 Pulse 103 H 06/07/21 04:19 Resp 15 06/07/21 04:19 BP 132/82 06/07/21 04:19 Pulse Ox 97 06/07/21 04:19 Body Mass Index 30.2 <Alicia Alas MD - Last Filed: 06/07/21 05:28> Appearance: Alert.? Oriented X3.? + Mild respiratory distress with accessory muscle use for breathing. +Tracheal tugging Eyes: Pupils equal, round and reactive to light.? ENT: Pharynx normal.? Neck: Normal inspection.? Neck supple.? CVS: Normal heart rate and rhythm.? Pulses normal.? Respiratory: No respiratory distress.?+ diminished breath sounds bilaterally worse on the left + wheezing throughout all lung sosa Abdomen: Soft and nontender.? Skin: Skin warm and dry.? Normal skin color.? Normal skin turgor.? Extremities: No lower extremity edema.? No calf ttp Neuro: Oriented X 3.? No motor deficit.? No sensory deficit. <PHANI Pritchett - Last Filed: 06/07/21 02:30> Course Reevaluation(s) Reevaluation #1: Patient noted to have a slightly elevated white blood cell count, likely secondary to inflammation. Chemistry pending. CXR negative. Patient remained slightly hypertensive 141/79 she also remains tachypneic and tachycardic, I do not think this is due to infection, I think this is due to albuterol treatment here in the hospital, and prior to patient's arrival she took 10 pumps of albuterol. <PHANI Pritchett - Last Filed: 06/07/21 02:30> Time: 02:26 <PHANI Pritchett - Last Filed: 06/07/21 02:30> Reevaluation #2: Sign-out will be given to . Chemistry pending. Patient dispo pending labs and improvment <PHANI Pritchett - Last Filed: 06/07/21 02:30> Reevaluation #3: On re-evaluation patient was noted to still be speaking with very short sentences and all and auscultation still had significant wheezing noted bilaterally. And ordered another 2 10 mg albuterol treatment and on re- evaluation patient had significant improvement both subjectively as well as objectively. Review of all investigations without acute findings and suspect the noted leukocytosis is combination of stress response and steroids that patient received. <Alicia Alas MD - Last Filed: 06/07/21 05:28> Time: 03:05 <Alicia Alas MD - Last Filed: 06/07/21 05:28> MDM - Asthma MDM Narrative Medical decision making narrative: [age]-year-old female past medical history significant for opiate use disorder, and well-controlled asthma presents to the emergency department with shortness of breath, wheezing and what feels like a typical asthma attack since 4:00 p.m. today. She states she is taking about 10 puffs of albuterol with no relief. Upon physical examination there are diminished breath sounds heard bilateral sides, there is also wheezing noted throughout all lung sosa. S1 and S2 appreciated free of murmurs. Abdomen soft nontender nondistended. Patient's vital signs show hypertension 161/89, tachycardia 119, respiratory rate of 22. Patient is not febrile. She is saturating 94% on room air. She is using accessory muscles for breathing.Tracheal tugging Plan at this time is to obtain a chest x-ray, COVID, basic labs, give 2 g of magnesium 125mg Solu-Medrol, 10mg of albuterol. <PHANI Pritchett - Last Filed: 06/07/21 02:30> Medical Records Attestation: I reviewed the patient's medical records. <PHANI Pritchett - Last Filed: 06/07/21 02:30> Lab Data Attestation: I reviewed the patient's lab results. <PHANI Pritchett - Last Filed: 06/07/21 02:30> Result diagrams: : 06/07/21 00:04 06/07/21 04:17 <PHANI Pritchett - Last Filed: 06/07/21 02:30> Labs: Lab Results 06/07/21 06/07/21 06/07/21 Range/Units 00:04 00:04 04:17 WBC 17.6 H (4.8-10.8) X10*3/uL RBC 5.36 (4.20-5.50) X10*6/uL Hgb 15.5 (12.0-16.0) g/dl Hct 47.5 H (37.0-47.0) % MCV 88.6 (80.0-98.0) fL MCH 28.9 (27.0-33.0) pg MCHC 32.6 (31.0-35.0) g/dl RDW 13.7 (11.0-16.0) % Plt Count 327 (160-400) X10*3/uL MPV 10.9 (9.4-12.3) fL Immature Gran % (Auto) 0.3 (0.0-0.4) % Neut % (Auto) 61.8 (45-73) % Lymph % (Auto) 24.8 (20-40) % [place] % (Auto) 8.8 (2-11) % Eos % (Auto) 3.7 (0-4) % Baso % (Auto) 0.6 (0-2) % Lymph # (Auto) 4.4 (1.2-4.9) X10*3/uL [place] # (Auto) 1.6 H (0.1-1.2) X10*3/uL Eos # (Auto) 0.7 H (0.0-0.4) X10*3/uL Baso # (Auto) 0.1 (0.0-0.2) X10*3/uL Abs Immat Gran (auto) 0.06 H (0.00-0.03) X10*3/uL Absolute Neuts (auto) 10.9 H (2.0-8.3) x10*3/uL Absolute Nucleated RBC 0.000 (0.0-0.012) X10*3/uL Nucleated RBC % (auto) 0.0 (0.0-0.2) /100WBC Smear Tech's Comments VERIFIED Sodium 140 (135-145) mmol/L Potassium 3.8 (3.3-5.1) mmol/L Chloride 106 (96-108) mmol/L Carbon Dioxide 24 (22-29) mmol/L Anion Gap 14 (12-20) BUN 9 (9-16) mg/dL Creatinine 0.76 (0.5-1.4) mg/dL Estim Creat Clear Calc 117.7 Estimated GFR > 60 Random Glucose 134 H (60-115) mg/dL Calcium 9.7 (8.4-10.2) mg/dL Total Bilirubin 0.3 (0.0-1.0) mg/dL AST 32 H (5-31) U/L ALT 34 H (0-31) U/L Alkaline Phosphatase 81 (39-117) U/L Total Protein 7.7 (6.5-8.0) g/dL Albumin 4.6 (3.5-5.0) g/dL COVID-19 ([facility]LIN) Negative (Negative) COVID-19 Clin Com See Note <PHANI Pritchett - Last Filed: 06/07/21 02:30> Lab Results 06/07/21 06/07/21 06/07/21 Range/Units 00:04 00:04 04:17 WBC 17.6 H (4.8-10.8) X10*3/uL RBC 5.36 (4.20-5.50) X10*6/uL Hgb 15.5 (12.0-16.0) g/dl Hct 47.5 H (37.0-47.0) % MCV 88.6 (80.0-98.0) fL MCH 28.9 (27.0-33.0) pg MCHC 32.6 (31.0-35.0) g/dl RDW 13.7 (11.0-16.0) % Plt Count 327 (160-400) X10*3/uL MPV 10.9 (9.4-12.3) fL Immature Gran % (Auto) 0.3 (0.0-0.4) % Neut % (Auto) 61.8 (45-73) % Lymph % (Auto) 24.8 (20-40) % [place] % (Auto) 8.8 (2-11) % Eos % (Auto) 3.7 (0-4) % Baso % (Auto) 0.6 (0-2) % Lymph # (Auto) 4.4 (1.2-4.9) X10*3/uL [place] # (Auto) 1.6 H (0.1-1.2) X10*3/uL Eos # (Auto) 0.7 H (0.0-0.4) X10*3/uL Baso # (Auto) 0.1 (0.0-0.2) X10*3/uL Abs Immat Gran (auto) 0.06 H (0.00-0.03) X10*3/uL Absolute Neuts (auto) 10.9 H (2.0-8.3) x10*3/uL Absolute Nucleated RBC 0.000 (0.0-0.012) X10*3/uL Nucleated RBC % (auto) 0.0 (0.0-0.2) /100WBC Smear Tech's Comments VERIFIED Sodium 140 (135-145) mmol/L Potassium 3.8 (3.3-5.1) mmol/L Chloride 106 (96-108) mmol/L Carbon Dioxide 24 (22-29) mmol/L Anion Gap 14 (12-20) BUN 9 (9-16) mg/dL Creatinine 0.76 (0.5-1.4) mg/dL Estim Creat Clear Calc 117.7 Estimated GFR > 60 Random Glucose 134 H (60-115) mg/dL Calcium 9.7 (8.4-10.2) mg/dL Total Bilirubin 0.3 (0.0-1.0) mg/dL AST 32 H (5-31) U/L ALT 34 H (0-31) U/L Alkaline Phosphatase 81 (39-117) U/L Total Protein 7.7 (6.5-8.0) g/dL Albumin 4.6 (3.5-5.0) g/dL COVID-19 ([facility]) Negative (Negative) COVID-19 Clin Com See Note <Alicia Alas MD - Last Filed: 06/07/21 05:28> Imaging Data Chest x-ray: Attestation: I personally reviewed and interpreted this imaging study as follows: <PHANI Pritchett - Last Filed: 06/07/21 02:30> Radiologist's impression: XR/XR chest 1V IMPRESSION: Clear lungs. <PHANI Pritchett - Last Filed: 06/07/21 02:30> Critical Care Time Critical Care Time Critical Care Time: Yes <PHANI Pritchett - Last Filed: 06/07/21 02:30> Total Critical Care Time: 60 <PHANI Pritchett - Last Filed: 06/07/21 02:30> Attestation: I attest to this time spent taking care of the patient <PHANI Pritchett - Last Filed: 06/07/21 02:30> Discharge Plan Discharge Clinical Impression: Asthma with acute exacerbation <PHANI Pritchett - Last Filed: 06/07/21 02:30> Patient Disposition: Home, Self-Care <PHANI Pritchett - Last Filed: 06/07/21 02:30> Instructions: Asthma (ED) <PHANI Pritchett - Last Filed: 06/07/21 02:30> Additional Instructions: Take your albuterol inhaler as needed for shortness of breath. Follow-up with your primary care provider this week. Return to the emergency department with new or worsening symptoms. In case of emergency call 911 <PHANI Pritchett - Last Filed: 06/07/21 02:30> Prescriptions: New prednisone 20 mg tablet 40 mg PO DAILY 5 Days Qty: 10 RF: 0 benzonatate 100 mg capsule 100 mg PO BID PRN (Reason: cough) Qty: 14 RF: 0 No Action M- Plus 27 mg iron- 1 mg tablet 1 tab PO DAILY RF: 0 nicotine (polacrilex) 2 mg Gum 2 mg buccal Q2H PRN (Reason: Nicotine Cravings) 30 Days Qty: 90 RF: 0 triamcinolone acetonide 0.1 % Cream 1 appl topical DAILY 30 Days Qty: 50 RF: 0 albuterol sulfate [Ventolin HFA] 90 mcg/actuation Hfa Aerosol Inhaler 2 puff inhalation RQ6H PRN (Reason: Shortness Of Breath) 30 Days Qty: 1 RF: 0 buprenorphine-naloxone [Suboxone] 2-0.5 mg Film 1 film sublingual DAILY 7 Days Qty: 7 RF: 0 <PHANI Pritchett - Last Filed: 06/07/21 02:30> Referrals: Physician,Unknown J [Primary Care Provider] - 2 days <PHANI Pritchett - Last Filed: 06/07/21 02:30>
[2021-06-07] MEDS: methylPREDNISolone Sod Succ 125 MG/2 ML VIAL IVPUSH (00:09)
[2021-06-07] MEDS: Magnesium Sulfate/H2O 2 GM/50 ML PIGGYBACK IV (00:09)
[2021-06-07 00:12] LABS: Basophils Absolute Auto 0.1 X10*3/uL (0.0-0.2); Basophils Percent Auto 0.6 % (0-2); Eosinophils Absolute Auto 0.7 X10*3/uL (0.0-0.4); Eosinophils Percent Auto 3.7 % (0-4); Hematocrit 47.5 % (37.0-47.0); Hemoglobin 15.5 g/dl (12.0-16.0); Imm Gran Abs Auto 0.06 X10*3/uL (0.00-0.03); Imm Gran Pct Auto 0.3 % (0.0-0.4); Lymphocytes Absolute Auto 4.4 X10*3/uL (1.2-4.9); Lymphocytes Percent Auto 24.8 % (20-40); MANUAL DIFF FLAG SCAN; Mean Corpuscular HGB Conc 32.6 g/dl (31.0-35.0); Mean Corpuscular Hemoglobin 28.9 pg (27.0-33.0); Mean Corpuscular Volume 88.6 fL (80.0-98.0); Mean Platelet Volume 10.9 fL (9.4-12.3); Monocytes Absolute Auto 1.6 X10*3/uL (0.1-1.2); Monocytes Percent Auto 8.8 % (2-11); Neutrophils Absolute Auto 10.9 x10*3/uL (2.0-8.3); Neutrophils Percent Auto 61.8 % (45-73); Platelet Count 327 X10*3/uL (160-400); Red Blood Count 5.36 X10*6/uL (4.20-5.50); Red Cell Distribution Width 13.7 % (11.0-16.0); SCAN SMEAR FLAG 1; White Blood Count 17.6 X10*3/uL (4.8-10.8)
[2021-06-07 00:26] VITALS: BP 141/79; PULSE 119; RESP 22; TEMP 37; O2SAT 96
[2021-06-07 00:33] LABS: SLIDE REVIEW VERIFIED
[2021-06-07] MEDS: Albuterol Sulfate (0.083%) 2.5 MG/3 ML VIAL.NEB 10 MG INHALE ×2 (00:37→03:20)
[2021-06-07 00:43] LABS: COVID-19 Test Negative (Negative)
--- NOTE | 2021-06-07 00:56 | PC.NURSE ---
RESPIRATORY IN ROOM FOR BREATHING TX. BOYFRIEND AT BEDSIDE WITH PT. EKG OBTAINED TO MD FOR EVAL.
[2021-06-07 03:22] VITALS: PULSE 109; O2SAT 97
[2021-06-07 03:38] VITALS: BP 143/93; PULSE 100; RESP 16; TEMP 37; O2SAT 96
--- NOTE | 2021-06-07 04:03 | PC.NURSE ---
RESPIRATORY IN ROOM FOR BREATHING TX. PT TOLERATED WELL. VS OBTAINED. WILL CONTINUE TO MONITOR PT.
[2021-06-07 04:19] VITALS: BP 132/82; PULSE 103; RESP 15; TEMP 36.8; O2SAT 97
[2021-06-07 04:46] LABS: Alanine Aminotransferase 34 U/L (0-31); Albumin Level 4.6 g/dL (3.5-5.0); Alkaline Phosphatase 81 U/L (39-117); Anion Gap 14 (12-20); Aspartate Amino Transferase 32 U/L (5-31); Bilirubin Total 0.3 mg/dL (0.0-1.0); Blood Urea Nitrogen 9 mg/dL (9-16); Calcium 9.7 mg/dL (8.4-10.2); Carbon Dioxide 24 mmol/L (22-29); Chloride 106 mmol/L (96-108); Creatinine Clr Calc Pharmacy 117.7; Estimated Glomerular Filt Rate > 60; Glucose Random 134 mg/dL (60-115); Potassium 3.8 mmol/L (3.3-5.1); Sodium 140 mmol/L (135-145); Total Protein 7.7 g/dL (6.5-8.0)
== END 2021-06-07 05:45 | disposition home or self-care (01) ==
PROVIDERS: Physician Assistant; Emergency Provider Internal Medicine
DX: J45.901 Unspecified asthma with (acute) exacerbation (principal); I10 Essential (primary) hypertension; F11.90 Opioid use, unspecified, uncomplicated; Z20.822 Contact with and (suspected) exposure to COVID-19
CPT/HCPCS: 36415; 71045; 80053; 85025; 87635; 93005; 94664; 96365; 96366; 96375; 99284; 99291; J2930; J3475

== ENCOUNTER 2021-10-11 05:11 | Observation (INO) | payer OTHER, SELFPAY ==
[2021-10-11] VITALS (13 sets, daily range): BP systolic 126–150; BP diastolic 68–105; PULSE 98–130; RESP 14–24; TEMP 36.2–36.8; O2SAT 89–100; BMI 29.2
--- NOTE | ~2021-10-11 | XR_ITS ---
EXAMINATION: XR CHEST CLINICAL INFORMATION: Shortness of breath COMPARISON: 06/07/21 TECHNIQUE: Upright frontal portable view of the chest was obtained. FINDINGS: There is mild rotation toward the right. Devices overlie the patient. Cardiac size, mediastinal contours, and jennifer are within normal limits. There is no edema. There is no consolidation or major zone of atelectasis. The visualized pleural margins are within normal limits. XR/XR chest 1V IMPRESSION: No acute chest disease
[2021-10-11] MEDS: Albuterol Sulfate (0.083%) 2.5 MG/3 ML VIAL.NEB 7.5 MG INHALE (05:25)
--- NOTE | 2021-10-11 05:27 | ED.SOB ---
HPI - SOB/Dyspnea General Chief Complaint: Asthma Stated Complaint: SOB Time Seen by Provider: 10/11/21 05:16 Source: patient Mode of arrival: EMS Limitations: no limitations History of Present Illness HPI Narrative: Patient history of asthma brought by EMS for increased shortness of breath for last few hours patient says when she came home from work started feeling increased shortness of breath no fever no cough no upper respiratory symptoms patient is not vaccinated against COVID , patient was saturating 87% at room air when EMS least, patient received albuterol treatment and 125 mg Solu-Medrol by EMS now she is improved and feeling much better patient took 1 Percocet around 23:[address] for headache Related Data Home Medications Medication Instructions Recorded Confirmed vitamin with calcium 1 tab PO DAILY 05/22/21 05/22/21 no.72-iron 27 mg-folic acid 1 mg tablet (M-Prince Plus) Previous Rx's Medication Instructions Recorded albuterol sulfate 90 mcg/actuation 2 puff INHALATION RQ6H PRN 30 Days 05/25/21 aerosol inhaler (Ventolin HFA) #1 g buprenorphine 2 mg-naloxone 0.5 mg 1 film SUBLINGUAL DAILY 7 Days #7 05/25/21 sublingual film (Suboxone) ea nicotine (polacrilex) 2 mg gum 2 mg BUCCAL Q2H PRN 30 Days #90 ea 05/25/21 triamcinolone acetonide 0.1 % 1 appl TOPICAL DAILY 30 Days #50 g 05/25/21 topical cream benzonatate 100 mg capsule 100 mg PO BID PRN #14 cap 06/07/21 prednisone 20 mg tablet 40 mg PO DAILY 5 Days #10 tab 06/07/21 Allergies Allergy/AdvReac Type Severity Reaction Status Date / Time No Known Allergies Allergy Verified 06/06/21 23:50 [No Known Allergies*] Review of Systems Review of Systems: Yes all other systems are reviewed and are negative PMFSH Past Medical History Medical History Asthma Eczema Social History Social History Household Members: Significant Other Household Members Other:: none Housing: House Do you presently have visiting nurse or other home services: No Patient Tobacco Use Status: Current everyday Tobacco user Tobacco use type: Cigarette Cigarette Packs Per Day: 0.1 Cigarettes Per Day: 2.0 Second Hand Smoke Exposure: Yes Substance Use Type: Other Advance Directives: No Advance Directives Information Provided: Yes service: No Sexual orientation: Straight/Heterosexual Physical Exam Vital Signs: Vital Signs: Last Vital Signs Temp 98.2 F 10/11/21 05:18 Pulse 127 H 10/11/21 06:33 Resp 17 10/11/21 06:33 BP 128/78 10/11/21 06:18 Pulse Ox 90 L 10/11/21 06:18 BMI result Body Mass Index 29.2 Appearance: Alert. Oriented X3. In moderate respiratory distress. Eyes: No pallor or icterus ENT: Pharynx normal. Oral Mucosa moist Neck: Normal inspection. Neck supple. CVS: Normal heart rate and rhythm. Pulses normal. Respiratory: Moderate respiratory distress bilateral wheezing and rhonchi no rales no crepitus Abdomen: Soft and nontender. Bowel sounds are present, no mass palpable, Skin: Skin warm and dry. Normal skin color. Normal skin turgor. Extremities: No lower extremity edema. No calf tenderness Neuro: Oriented X 3. No motor deficit MDM - SOB/Dyspnea MDM Narrative Medical decision making narrative: Patient with asthma with hypoxia desaturating to 89% at room air while sleeping will give IV magnesium repeat albuterol treatment observe for some time if continued to be hypoxic will admit. Will do chest x-ray and labs Lab Data Attestation: I reviewed the patient's lab results. Labs: Lab Results 10/11/21 Range/Units 05:24 COVID-19 ([facility]) Negative (Negative) COVID-19 Clin Com See Note Discharge Plan Discharge Clinical Impression: Asthma with acute exacerbation Patient Disposition: Still a Patient Prescriptions: No Action M-Prince Plus 27 mg iron- 1 mg tablet 1 tab PO DAILY 0RF nicotine (polacrilex) 2 mg Gum 2 mg buccal Q2H PRN (Reason: Nicotine Cravings) 30 Days Qty: 90 0RF triamcinolone acetonide 0.1 % Cream 1 appl topical DAILY 30 Days Qty: 50 0RF Protocol: Apply to: Apply to: affected areas albuterol sulfate [Ventolin HFA] 90 mcg/actuation Hfa Aerosol Inhaler 2 puff inhalation RQ6H PRN (Reason: Shortness Of Breath) 30 Days Qty: 1 0RF buprenorphine-naloxone [Suboxone] 2-0.5 mg Film 1 film sublingual DAILY 7 Days Qty: 7 0RF prednisone 20 mg tablet 40 mg PO DAILY 5 Days Qty: 10 0RF benzonatate 100 mg capsule 100 mg PO BID PRN (Reason: cough) Qty: 14 0RF
--- NOTE | 2021-10-11 05:28 | PC.NURSE ---
EMS report taken, pt given 125 solumedrol. breathing treatment. Respiratory and provider into assess pt. Pt is stating at 100 after EMS treatment.
--- NOTE | 2021-10-11 05:42 | PC.NURSE ---
Assumed care of pt Pt resting on stretcher with breathing tx Pt tolerating well Pt states feeling better 02 97-100% Will continue to monitor
[2021-10-11 05:54] LABS: COVID-19 Test Negative (Negative)
--- NOTE | 2021-10-11 06:09 | PC.NURSE ---
Pt finished breathing tx Pt states feels like breathing better Expiratory wheezes audible 02 92% on RA Tachycardic with HR 120s-130s Per MD, will give pt a break and give another dose of breathing tx. Will continue to monitor
[2021-10-11] MEDS: Albuterol Sulfate (0.083%) 2.5 MG/3 ML VIAL.NEB 5 MG INHALE ×2 (06:33→09:39)
[2021-10-11] MEDS: Magnesium Sulfate/H2O 2 GM/50 ML PIGGYBACK IV (06:51)
--- NOTE | 2021-10-11 06:55 | PC.NURSE ---
Pt medicated per MAR Pt tolerated well Will continue to monitor
[2021-10-11 06:59] LABS: Basophils Absolute Auto 0.1 X10*3/uL (0.0-0.2); Basophils Percent Auto 0.3 % (0-2); Eosinophils Absolute Auto 0.3 X10*3/uL (0.0-0.4); Hematocrit 42.2 % (37.0-47.0); Hemoglobin 13.3 g/dl (12.0-16.0); Imm Gran Abs Auto 0.11 X10*3/uL (0.00-0.03); Imm Gran Pct Auto 0.5 % (0.0-0.4); Lymphocytes Absolute Auto 1.3 X10*3/uL (1.2-4.9); Lymphocytes Percent Auto 5.3 % (20-40); MANUAL DIFF FLAG SCAN; Mean Corpuscular HGB Conc 31.5 g/dl (31.0-35.0); Mean Corpuscular Hemoglobin 27.9 pg (27.0-33.0); Mean Corpuscular Volume 88.5 fL (80.0-98.0); Mean Platelet Volume 9.7 fL (9.4-12.3); Monocytes Absolute Auto 0.8 X10*3/uL (0.1-1.2); Monocytes Percent Auto 3.5 % (2-11); Neutrophils Absolute Auto 21.7 x10*3/uL (2.0-8.3); Neutrophils Percent Auto 89.4 % (45-73); Platelet Count 293 X10*3/uL (160-400); Red Blood Count 4.77 X10*6/uL (4.20-5.50); Red Cell Distribution Width 13.7 % (11.0-16.0); SCAN SMEAR FLAG 1; White Blood Count 24.3 X10*3/uL (4.8-10.8)
[2021-10-11 07:11] LABS: Anion Gap 14 (12-20); Blood Urea Nitrogen 10 mg/dL (9-16); Calcium 9.4 mg/dL (8.4-10.2); Carbon Dioxide 24 mmol/L (22-29); Chloride 104 mmol/L (96-108); Creatinine Clr Calc Pharmacy 111.3; Estimated Glomerular Filt Rate > 60; Glucose Random 163 mg/dL (60-115); Potassium 4.1 mmol/L (3.3-5.1); Sodium 138 mmol/L (135-145)
[2021-10-11 07:53] LABS: SLIDE REVIEW VERIFIED
--- NOTE | 2021-10-11 07:56 | PHA.MEDREC ---
Pharmacy Consult ? Medication Reconciliation Pharmacy has completed the medication reconciliation. Patient report no mediations besides an albuterol inhaler. Jerica Hearn, YaraD
--- NOTE | 2021-10-11 09:39 | PM.EVENT ---
Event Note Date of Service: 10/11/21 Event Note: Patient seen and examined this AM around 9. Examined and history taken. She is no longer hypoxic but still with diffuse wheezing. She does not want to be admitted to the hospital. I have explained to her the risk of not doing so which include worsening of her asthma / respiratory symptoms to the point of respiratory failure and even . She refuses despite this. I have relayed this information to the ED provider (Dr. Argueta) who has spoken with the patient herself. He will let me know if the patient decides to stay for admission.
--- NOTE | 2021-10-11 10:06 | P.HPHOSP_ITS ---
History of Present Illness Date of Service: 10/11/21 Chief Complaint: shortness of breath, wheezing This is a 21 year old female with a PMH of asthma (suspected, mild intermittent based off reported symptoms) and eczema who presents to the hospital with complaints of progressive shortness of breath of several days duration. The patient reports that she has been increasing short of breath with persistent wheezing and a non-productive cough. She denies any fevers or chills. No reported sick contacts. She reports on the evening prior to arrival, she was struggling to breathe and so she called EMS. She was noted to be hypoxic when EMS arrived to 87% on RA. She was given IV solu-medrol and albuterol nebs by the paramedics and brought to the ED. In the ED, she was treated with 3 rounds to albuterol with some improvement. She was hypoxic in the ED for a short while, but now this has resolved. She continues to have diffuse wheezing and visible shortness of breath with minimal exertion. Initially the patient requested discharge home, but now has agreed to stay for treatment. Patient does endorse that she continues to smoke tobacco. In regards to illcit drug use -- she reponds not any more. In regards to her asthma history -- she uses an albuterol inhalers once daily in the morning. She reports 2 exa cerbations in the last 1 year. She reports that she was previously on a controller inhaler, but currently only uses albuterol. She reports that her asthma has overall improved. Review of Systems Review of Systems: negative except [facility] Medical History (Updated 10/11/21 @ 06:53 by Karl Sandhu MD) Asthma Eczema Pertinent family history: Denies any FH of asthma / eczema Surgical History (Updated 10/11/21 @ 10:13 by Wyatt Silva MD) No pertinent past surgical history Social History (Updated 10/11/21 @ 10:14 by Wyatt Silva MD) Household Members: Significant Other Household Members Other:: none Housing: House Do you presently have visiting nurse or other home services: No Alcohol intake: never Patient Tobacco Use Status: Current everyday Tobacco user Tobacco use type: Cigarette Cigarette Packs Per Day: 0.1 Cigarettes Per Day: 2.0 Second Hand Smoke Exposure: Yes Use of substances other than those prescribed or required for medical reasons: No Substance Use Type: Other Advance Directives: No Advance Directives Information Provided: Yes service: No Sexual orientation: Straight/Heterosexual Meds Allergies Allergy/AdvReac Type Severity Reaction Status Date / Time No Known Allergies Allergy Verified 06/06/21 23:50 [No Known Allergies*] Home Medications Medication Instructions Recorded Confirmed Last Taken Type albuterol sulfate 90 mcg/actuation 2 puff INHALATION Q6H PRN 10/11/21 10/11/21 Unknown History aerosol inhaler (Ventolin HFA) Physical Exam Vital Signs and Narrative: Vital Signs: Last Vital Signs Temp 98.2 F 10/11/21 05:18 Pulse 118 H 10/11/21 09:39 Resp 20 10/11/21 09:39 BP 128/78 10/11/21 06:18 Pulse Ox 89 L 10/11/21 06:56 BMI result Body Mass Index 29.2 Const: Other: Constitutional - Awake and Alert, No apparent distress at rest, but in moderate respiratory distress with minimal exrtion Eyes - PERRLA, EOMI Cardiovascular - S1S2, tachycardic to the 120s Respiratory - Diffuse wheezing globally; +accessory muscle usage with exertion Gastrointestinal - NT / ND; +BS; No rebound or guarding - No CVA tenderness Extremities - no calf tenderness bilaterally, no swelling Musculoskeletal - Normal inspection, normal ROM Skin - Warm/Dry Neurological - Alert & oriented x3, No focal deficit Psychological - Appropriate affect Results Labs CBC and Chem 7: 10/11/21 06:48 10/11/21 06:48 Labs: Laboratory Results - last 24 hr 10/11/21 10/11/21 10/11/21 05:24 06:48 06:48 MCV 88.5 MCH 27.9 MCHC 31.5 RDW 13.7 Plt Count 293 MPV 9.7 Immature Gran % (Auto) 0.5 H Neut % (Auto) 89.4 H Lymph % (Auto) 5.3 L [place] % (Auto) 3.5 Eos % (Auto) 1.0 Baso % (Auto) 0.3 Lymph # (Auto) 1.3 [place] # (Auto) 0.8 Eos # (Auto) 0.3 Baso # (Auto) 0.1 Abs Immat Gran (auto) 0.11 H Absolute Neuts (auto) 21.7 H Absolute Nucleated RBC 0.000 Nucleated RBC % (auto) 0.0 Smear Tech's Comments VERIFIED Anion Gap 14 Estim Creat Clear Calc 111.3 Estimated GFR > 60 Random Glucose 163 H Calcium 9.4 COVID-19 ([facility]) Negative COVID-19 Clin Com See Note Imaging Radiologist's Impressions: Impressions Chest X-Ray 10/11/21 06:55 IMPRESSION: No acute chest disease Assessment and Plan (1) Asthma with acute exacerbation: Status: Acute Plan This is a 21 year smoker with a PMH of asthma / eczema who presents with progressive shortness of breath of several days duration. Her presentation is consistent with acute exacerbation of asthma. She will be admitted for further treatment. 1. Acute Exacerbation of Asthma (suspected intermittent) IV solu-medrol Scheduled + PRN albuterol will likely need to f/u with PCP in order to start her controller meds again 2. Transient hypoxia sats were in the high 80s but improved to the 90s after multiple rounds of bronchodilators no respiratory failure at this time monitor o2 intermittent or if in distress 3. Tobacco use Impacting her asthma cessation has been encouraged NRT if patient requests 4. Leukocytosis no evidence of infection at this time monitor Full Code DVT pptx, Low risk -- early ambulation Quality Stroke Does the patient have a stroke diagnosis?: No VTE Prior VTE?: No VTE Risk Level:: Medical - low VTE Device Contraindication: Treatment Not Indicated VTE Drug Contraindication: Treatment Not Indicated
--- NOTE | 2021-10-11 10:31 | PC.NURSE ---
Pt resting comfortably, Pt reports breathing improving, magnesium infusion completed.
--- NOTE | 2021-10-11 10:43 | PC.NURSE ---
Pt report given to rn in overflow, Pt will be transported to ED overflow bed 9.
[2021-10-11 11:23] LABS: HCG Quantitative < 2 mIU/mL
[2021-10-11] MEDS: methylPREDNISolone Sod Succ 40 MG/ML VIAL IVPUSH ×2 (11:45→18:24)
--- NOTE | 2021-10-11 11:50 | PC.NURSE ---
Pt sleeping, arouses to name. No complaints of pain at this time, lungs diminished with minimal wheezing heard at this time. Pt states she feels significantly better but is tired from no sleep last night. Medicated as per [facility] orders, call cantu within reach. Will continue to monitor.
--- NOTE | 2021-10-11 14:20 | PC.NURSE ---
Pt OOB to BR independently, upon exiting the bathroom, pt became severly SOB, diaphoretic with insp and exp wheezes throughout. Respiratory notified for PRN treatment. Wheelchair provided back to bed, placed back on O2. Call cantu within reach, will continue to monitor.
[2021-10-11] MEDS: Albuterol Sulfate (0.083%) 2.5 MG/3 ML VIAL.NEB INHALE ×3 (16:36→23:36)
[2021-10-11] MEDS: 0.9 % Sodium Chloride Flush 3 ML SYRINGE IVFLUSH (21:19)
[2021-10-12] MEDS: methylPREDNISolone Sod Succ 40 MG/ML VIAL IVPUSH ×2 (03:02→10:55)
[2021-10-12 03:58] VITALS: BP 108/57; PULSE 95; RESP 14; TEMP 36.4; O2SAT 96
[2021-10-12] MEDS: Albuterol Sulfate (0.083%) 2.5 MG/3 ML VIAL.NEB INHALE ×2 (06:47→11:57)
[2021-10-12 06:50] VITALS: PULSE 95; RESP 16; O2SAT 96
[2021-10-12] MEDS: 0.9 % Sodium Chloride Flush 3 ML SYRINGE IVFLUSH ×2 (07:08→14:42)
[2021-10-12 08:00] VITALS: BP 103/55; PULSE 94; RESP 18; TEMP 36; O2SAT 96
[2021-10-12 11:12] VITALS: BP 124/57; PULSE 90; RESP 18; TEMP 37; O2SAT 94
[2021-10-12 11:57] VITALS: PULSE 72; RESP 16; O2SAT 98
--- NOTE | 2021-10-12 14:31 | MHC.CM.PN ---
Addendum entered by Gerber Ramirez RN 10/12/21 14:33: STEPHENSON REVIEWED W/PT 10/12/21. Original Note: EMR REVIEWED, PT ADMITTED W/ASTHMA EXAC, CM MET W/PT WHO REPORTS SHE WORKS AT [employer] [address] [employer], LIVES W/BF, INDEP W/ALL CARE, DENIES USE OF DME AND NO HOME SERVICES, PT ANXIOUS TO D/C TODAY SO SHE CAN GO TO WORK BY 4PM, PT ENCOURAGED TO STAY, PT REPORTS SHE WILL THINK ABOUT IT AND LET CM/NURSE KNOW. PT VERIFIES PCP IS AT [facility] AND FIRST NAME IS GERBER BUT UNSURE OF PROVIDERS LAST NAME, PT REPORTS SHE HAS NOT BEEN VACCINATED AGAINST COVID AND PT EDUCATED ON HCP'S AND PT IS CURRENTLY DECLINING. D/C PLAN: HOME NO SERVICES, S.O. FOR TRANSPORT
--- NOTE | 2021-10-12 14:59 | PM.DS ---
DS: Providers Provider Date of Service: 10/12/21 Date of admission: 10/11/21 10:04 Date of discharge: 10/12/21 Primary care physician: Unknown Physician Attending physician on discharge: Wyatt Silva Discharging clinician: Vilma Jama DS: Diagnosis Discharge Diagnosis (1) Asthma with acute exacerbation: Status: Acute (2) Acute respiratory failure with hypoxia: Status: Acute DS: Summary Hospital Course Hospital Course: From H&P on day of admission This is a 21 year old female with a PMH of asthma (suspected, mild intermittent based off reported symptoms) and eczema who presents to the hospital with complaints of progressive shortness of breath of several days duration. The patient reports that she has been increasing short of breath with persistent wheezing and a non-productive cough. She denies any fevers or chills. No reported sick contacts. She reports on the evening prior to arrival, she was struggling to breathe and so she called EMS. She was noted to be hypoxic when EMS arrived to 87% on RA. She was given IV solu-medrol and albuterol nebs by the paramedics and brought to the ED. In the ED, she was treated with 3 rounds to albuterol with some improvement. She was hypoxic in the ED for a short while, but now this has resolved. She continues to have diffuse wheezing and visible shortness of breath with minimal exertion. Initially the patient requested discharge home, but now has agreed to stay for treatment. Patient does endorse that she continues to smoke tobacco. In regards to illcit drug use -- she reponds not any more. In regards to her asthma history -- she uses an albuterol inhalers once daily in the morning. She reports 2 exacerbations in the last 1 year. She reports that she was previously on a controller inhaler, but currently only uses albuterol. She reports that her asthma has overall improved. Acute respiratory failure with hypoxia secondary to acute asthma exacerbation Patient was admitted to the medical floor and treated with scheduled and p.r.n. breathing treatments and IV Solu-Medrol. She was able to be weaned down off nasal cannula and has been saturating well on room air all day. She is eager to be discharged from the hospital. The importance of smoking cessation was discussed with her. She is encouraged to follow-up with her primary care provider. She will be discharged home with short burst of prednisone, Flovent scheduled twice daily as well as albuterol to be used as needed for shortness of breath or wheezing. She is encouraged to return to the emergency department with any symptoms of shortness of breath. Time Spent with Patient Time attestation: Total time spent providing and/or coordinating discharge services: Discharge coordination time: Greater than 30 minutes Quality: Stroke Does the patient have a stroke diagnosis?: No Physical Exam Vital Signs: Vital Signs: Last Vital Signs Temp 98.6 F 10/12/21 11:12 Pulse 72 10/12/21 11:57 Resp 16 10/12/21 11:57 BP 124/57 L 10/12/21 11:12 Pulse Ox 94 10/12/21 11:12 BMI result Body Mass Index 29.2 Const: General: cooperative, comfortable, no acute distress, alert and awake Nutritional Appearance: average body habitus Resp: Other: scattered wheezing, improving Effort & Inspection: normal respiratory effort and able to speak in complete sentences Cardio: Rate: regular rate Heart sounds: S1 normal heart sound present and S2 normal heart sound present GI: Inspection: No distended Palpation (GI): Soft to palpation and nontender Extrem: Other: no leg edema Discharge Plan Discharge Patient Disposition: Home, Self-Care Discharge Diagnosis: asthma exacerbation Referrals: Physician,Unknown J [Primary Care Provider] - 1 Week Discharge Medications: New prednisone 20 mg tablet 40 mg PO DAILY 5 Days Qty: 10 0RF albuterol sulfate [Ventolin HFA] 90 mcg/actuation HFA aerosol inhaler 2 puff inhalation Q4-6H PRN (Reason: shortness of breath or wheezing) Qty: 6.7 0RF Flovent HFA 110 mcg/actuation HFA aerosol inhaler 1 puff inhalation BID Qty: 12 0RF Rx Instructions: administer with spacer Continued albuterol sulfate [Ventolin HFA] 90 mcg/actuation HFA aerosol inhaler 2 puff inhalation Q6H PRN (Reason: Shortness Of Breath) 0RF Discharge Orders: Discharge Order (Routine); Ordered 10/12/21 Ordered By: Vilma Jama Activity on Discharge: As tolerated Stand Alone Forms: Patient Portal Discharge page Care Plan Goals: see below Health Concerns: Asthma exacerbation Plan of Treatment: take entire course of prednisone as prescribed take flovent twice daily and albuterol as needed for shortness of breath or wheezing return to the ED with any shortness of breath Call to schedule follow-up appointment with your PCP Smoking cessation is highly recommended Assessment: see discharge summary
== END 2021-10-12 15:52 | disposition home or self-care (01) ==
LOC: HO.ED 06:44 → HO.EDOVER 10:11 → HO.S3 17:15
PROVIDERS: Admitting Provider Family Medicine; Emergency Provider Internal Medicine; PCP Registered Nurse Community Health; Visit Provider Physician Assistant Medical
DX: J45.901 Unspecified asthma with (acute) exacerbation (principal); J96.01 Acute respiratory failure with hypoxia; F17.210 Nicotine dependence, cigarettes, uncomplicated; Z20.822 Contact with and (suspected) exposure to COVID-19; Z79.899 Other long term (current) drug therapy
CPT/HCPCS: 36415; 71045; 80048; 84702; 85025; 87635; 94640; 94644; 94645; 96365; 99218; 99285; J2920; J3475

== ENCOUNTER 2021-11-26 00:22 | Emergency (ER) | payer OTHER, SELFPAY ==
--- NOTE | ~2021-11-26 | XR_ITS ---
EXAMINATION: XR CHEST CLINICAL INFORMATION: Cardiac arrest COMPARISON: Chest radiograph 10/11/2021. TECHNIQUE: Frontal view of the chest was obtained. FINDINGS: Normal appearance of the cardiomediastinal structures. Pleura normal pattern of pulmonary vasculature. No focal pulmonary consolidation. Multiple external artifacts noted. Gaseous distention of the stomach. XR/XR chest 1V IMPRESSION: *No acute cardiopulmonary abnormalities. *Gaseous distention of the stomach.
--- NOTE | 2021-11-26 00:31 | ECG_ITS ---
Test Reason : CAEDIAC ARREST Blood Pressure : / mmHG Vent. Rate : 153 BPM Atrial Rate : 258 BPM P-R Int : 000 ms QRS Dur : 094 ms QT Int : 302 ms P-R-T Axes : 000 088 071 degrees QTc Int : 482 ms Atrial fibrillation with rapid ventricular response Nonspecific ST and T wave abnormality Abnormal ECG When compared with ECG of 07-JUN-2021 00:44, Atrial fibrillation has replaced Sinus rhythm ST now depressed in Anterior leads T wave inversion more evident in Inferior leads Nonspecific T wave abnormality now evident in Lateral leads Referred By: Roseann Hardy Electronically Signed By:DEUCE BAILEY MD
[2021-11-26] MEDS: 0.9 % Sodium Chloride 2,000 ML 999 ML IV (00:46)
[2021-11-26 00:47] LABS: Hematocrit 41.5 % (37.0-47.0); Hemoglobin 12.3 g/dl (12.0-16.0); Mean Corpuscular HGB Conc 29.6 g/dl (31.0-35.0); Mean Corpuscular Hemoglobin 28.1 pg (27.0-33.0); Mean Corpuscular Volume 94.7 fL (80.0-98.0); Mean Platelet Volume 11.3 fL (9.4-12.3); NRBC Pct Auto 0.3 /100WBC (0.0-0.2); Platelet Count 300 X10*3/uL (160-400); Red Blood Count 4.38 X10*6/uL (4.20-5.50); Red Cell Distribution Width 14.4 % (11.0-16.0); White Blood Count 17.6 X10*3/uL (4.8-10.8)
--- NOTE | 2021-11-26 00:50 | ED_ITS ---
HPI - CPR General Chief Complaint: Cardiac Arrest/CPR Stated Complaint: cardiac arrest Time Seen by Provider: 11/26/21 00:30 Source: EMS Mode of arrival: EMS History of Present Illness HPI narrative: 21-year-old female with history of asthma and opioid use disorder is brought in by EMS with CPR in progress. EMS reports that patient had a witnessed arrest by her boyfriend who immediately initiated CPR, PD administered 8 mg of Narcan when they arrived on scene. EMS states that they performed ACLS for approximately 17 minutes with administration of 6 rounds of epi and then reportedly obtained ROSC with a bradycardic rhythm for which they administered atropine. EMS then notes that patient Re-arrested with asystole, patient has 2 IV accesses (1 IO) and a Filiberto tube in place. Related Data Home Medications Medication Instructions Recorded Confirmed albuterol sulfate 90 mcg/actuation 2 puff INHALATION Q6H PRN 10/11/21 10/11/21 aerosol inhaler (Ventolin HFA) Previous Rx's Medication Instructions Recorded albuterol sulfate 90 mcg/actuation 2 puff INHALATION Q4-6H PRN #6.7 g 10/12/21 aerosol inhaler (Ventolin HFA) fluticasone propionate 110 1 puff INHALATION BID #12 g 10/12/21 mcg/actuation HFA aerosol inhaler (Flovent HFA) prednisone 20 mg tablet 40 mg PO DAILY 5 Days #10 tab 10/12/21 Allergies Allergy/AdvReac Type Severity Reaction Status Date / Time No Known Allergies Allergy Verified 06/06/21 23:50 [No Known Allergies*] Review of Systems Review of Systems: Yes unobtainable due to endotracheal tube and Unobtainable due to mental condition FOR[facility] Past Medical History Medical History (Updated 11/26/21 @ 01:23 by Alicia Alas MD) Asthma Eczema Surgical History (Updated 10/11/21 @ 10:13 by Wyatt Silva MD) No pertinent past surgical history Social History Social History (Updated 10/11/21 @ 10:14 by Wyatt Silva MD) Household Members: Significant Other Household Members Other:: none Housing: House Do you presently have visiting nurse or other home services: No Alcohol intake: never Patient Tobacco Use Status: Never used Tobacco Tobacco use type: Cigarette Cigarette Packs Per Day: 0.1 Cigarettes Per Day: 2.0 Second Hand Smoke Exposure: Yes Substance Use Type: Other Advance Directives: No service: No Current occupational status: employed Sexual orientation: Straight/Heterosexual Physical Exam Vital Signs: Vital Signs: BMI result Body Mass Index 30.2 CPR in progress. Patient with dusky blue color, IO in right tibia, IV in right AC, Filiberto tube in place with capnography reading 60s-70s. High performance compressions. Course Course Course Narrative: Three rounds of epi provided. One amp of bicarb given. 1232: ROSC with EKG demonstrating sinus tachycardia without STEMI ED bedside ultrasound without evidence of right heart strain. 0140: Patient having multiple rhythm changes likely secondary to cardiac arrest as well as electrolyte changes such as hyper kalemia. Patient will receive calcium gluconate as well as magnesium. Blood pressure is stable on low-dose Levophed. Reevaluation(s) Reevaluation #1: I discussed this case with [facility] carpenter and joiner, Dr Green, who accepts transfer. Time: 01:05 Reevaluation #2: I left message with emergency contact Kenna Tyiano, Time: 01:30 Reevaluation #3: 0140: Rhythm c/w Torsades, patient given 2mg Magnesium. 0142: 2g Calcium Gluconate given for elevated potassium and peaked T-waves 0151: 200J synchronized cardioversion for V-tach 0152: 150mg Amiodarone 0210: Lidocaine gtt started 0215: 150mg Amiodarone 0216: 200J cardioversion MDM - Cardiac Arrest/CPR Lab Data Result diagrams: 11/26/21 00:34 11/26/21 00:34 Labs: Lab Results 11/26/21 11/26/21 11/26/21 Range/Units 00:28 00:34 00:34 WBC 17.6 H (4.8-10.8) X10*3/uL RBC 4.38 (4.20-5.50) X10*6/uL Hgb 12.3 (12.0-16.0) g/dl Hct 41.5 (37.0-47.0) % MCV 94.7 (80.0-98.0) fL MCH 28.1 (27.0-33.0) pg MCHC 29.6 L (31.0-35.0) g/dl RDW 14.4 (11.0-16.0) % Plt Count 300 (160-400) X10*3/uL MPV 11.3 (9.4-12.3) fL Immature Gran % (Auto) Cancelled Neut % (Auto) Cancelled Lymph % (Auto) Cancelled [place] % (Auto) Cancelled Eos % (Auto) Cancelled Baso % (Auto) Cancelled Lymph # (Auto) Cancelled [place] # (Auto) Cancelled Eos # (Auto) Cancelled Baso # (Auto) Cancelled Abs Immat Gran (auto) Cancelled Absolute Neuts (auto) Cancelled Absolute Nucleated RBC 0.050 H (0.0-0.012) X10*3/uL Nucleated RBC % (auto) 0.3 H (0.0-0.2) /100WBC Neutrophils % (Manual) 56 (45-73) % Band Neutrophils % 3 (3-5) % Lymphocytes % (Manual) 29 (20-40) % Monocytes % (Manual) 4 (2-11) % Eosinophils % (Manual) 7 H (0-4) % Metamyelocytes % 1 % Abs Neuts (Manual) 10.4 H (2.0-8.3) X10*3/uL Lymphocytes # (Manual) 5.1 H (1.2-4.9) X10*3/uL Monocytes # (Manual) 0.7 (0.1-1.2) X10*3/uL Eosinophils # (Manual) 1.2 H (0.0-0.4) X10*3/uL Metamyelocytes # 0.2 X10*3/uL Nucleated RBCs 2 H (0-0) /100WBC Toxic Vacuolation PRESENT Platelet Estimate NORMAL (NORMAL) Plt Morphology Comment NORMAL RBC Morphology NORMAL Sodium 148 H (135-145) mmol/L Potassium 5.7 H D (3.3-5.1) mmol/L Chloride 108 (96-108) mmol/L Carbon Dioxide 12 L (22-29) mmol/L Anion Gap 34 H (12-20) BUN 12 (9-16) mg/dL Creatinine 1.40 (0.5-1.4) mg/dL Estim Creat Clear Calc TNP Estimated GFR 47 POC Glucose 258 H (60-115) mg/dL Random Glucose 284 H (60-115) mg/dL Lactic Acid (0.5-2.0) mmol/L Calcium 9.3 (8.4-10.2) mg/dL Magnesium 3.0 H (1.6-2.6) mg/dL Total Bilirubin 0.3 (0.0-1.0) mg/dL AST 66 H (5-31) U/L ALT 60 H (0-31) U/L Alkaline Phosphatase 112 D (39-117) U/L Troponin I High Sens (<3.5-17.0) ng/L Total Protein 6.0 L D (6.5-8.0) g/dL Albumin 3.5 D (3.5-5.0) g/dL Beta HCG, Quant < 2 mIU/mL Ethyl Alcohol mg/dL COVID-19 ([facility]) (Negative) COVID-19 Clin Com 11/26/21 11/26/21 11/26/21 Range/Units 00:34 00:34 00:34 WBC (4.8-10.8) X10*3/uL RBC (4.20-5.50) X10*6/uL Hgb (12.0-16.0) g/dl Hct (37.0-47.0) % MCV (80.0-98.0) fL MCH (27.0-33.0) pg MCHC (31.0-35.0) g/dl RDW (11.0-16.0) % Plt Count (160-400) X10*3/uL MPV (9.4-12.3) fL Immature Gran % (Auto) Neut % (Auto) Lymph % (Auto) [place] % (Auto) Eos % (Auto) Baso % (Auto) Lymph # (Auto) [place] # (Auto) Eos # (Auto) Baso # (Auto) Abs Immat Gran (auto) Absolute Neuts (auto) Absolute Nucleated RBC (0.0-0.012) X10*3/uL Nucleated RBC % (auto) (0.0-0.2) /100WBC Neutrophils % (Manual) (45-73) % Band Neutrophils % (3-5) % Lymphocytes % (Manual) (20-40) % Monocytes % (Manual) (2-11) % Eosinophils % (Manual) (0-4) % Metamyelocytes % % Abs Neuts (Manual) (2.0-8.3) X10*3/uL Lymphocytes # (Manual) (1.2-4.9) X10*3/uL Monocytes # (Manual) (0.1-1.2) X10*3/uL Eosinophils # (Manual) (0.0-0.4) X10*3/uL Metamyelocytes # X10*3/uL Nucleated RBCs (0-0) /100WBC Toxic Vacuolation Platelet Estimate (NORMAL) Plt Morphology Comment RBC Morphology Sodium (135-145) mmol/L Potassium (3.3-5.1) mmol/L Chloride (96-108) mmol/L Carbon Dioxide (22-29) mmol/L Anion Gap (12-20) BUN (9-16) mg/dL Creatinine (0.5-1.4) mg/dL Estim Creat Clear Calc Estimated GFR POC Glucose (60-115) mg/dL Random Glucose (60-115) mg/dL Lactic Acid 17.3 H* (0.5-2.0) mmol/L Calcium (8.4-10.2) mg/dL Magnesium (1.6-2.6) mg/dL Total Bilirubin (0.0-1.0) mg/dL AST (5-31) U/L ALT (0-31) U/L Alkaline Phosphatase (39-117) U/L Troponin I High Sens 5.7 (<3.5-17.0) ng/L Total Protein (6.5-8.0) g/dL Albumin (3.5-5.0) g/dL Beta HCG, Quant mIU/mL Ethyl Alcohol < 10 mg/dL COVID-19 ([facility]) (Negative) COVID-19 Clin Com 11/26/21 Range/Units 01:00 WBC (4.8-10.8) X10*3/uL RBC (4.20-5.50) X10*6/uL Hgb (12.0-16.0) g/dl Hct (37.0-47.0) % MCV (80.0-98.0) fL MCH (27.0-33.0) pg MCHC (31.0-35.0) g/dl RDW (11.0-16.0) % Plt Count (160-400) X10*3/uL MPV (9.4-12.3) fL Immature Gran % (Auto) Neut % (Auto) Lymph % (Auto) [place] % (Auto) Eos % (Auto) Baso % (Auto) Lymph # (Auto) [place] # (Auto) Eos # (Auto) Baso # (Auto) Abs Immat Gran (auto) Absolute Neuts (auto) Absolute Nucleated RBC (0.0-0.012) X10*3/uL Nucleated RBC % (auto) (0.0-0.2) /100WBC Neutrophils % (Manual) (45-73) % Band Neutrophils % (3-5) % Lymphocytes % (Manual) (20-40) % Monocytes % (Manual) (2-11) % Eosinophils % (Manual) (0-4) % Metamyelocytes % % Abs Neuts (Manual) (2.0-8.3) X10*3/uL Lymphocytes # (Manual) (1.2-4.9) X10*3/uL Monocytes # (Manual) (0.1-1.2) X10*3/uL Eosinophils # (Manual) (0.0-0.4) X10*3/uL Metamyelocytes # X10*3/uL Nucleated RBCs (0-0) /100WBC Toxic Vacuolation Platelet Estimate (NORMAL) Plt Morphology Comment RBC Morphology Sodium (135-145) mmol/L Potassium (3.3-5.1) mmol/L Chloride (96-108) mmol/L Carbon Dioxide (22-29) mmol/L Anion Gap (12-20) BUN (9-16) mg/dL Creatinine (0.5-1.4) mg/dL Estim Creat Clear Calc Estimated GFR POC Glucose (60-115) mg/dL Random Glucose (60-115) mg/dL Lactic Acid (0.5-2.0) mmol/L Calcium (8.4-10.2) mg/dL Magnesium (1.6-2.6) mg/dL Total Bilirubin (0.0-1.0) mg/dL AST (5-31) U/L ALT (0-31) U/L Alkaline Phosphatase (39-117) U/L Troponin I High Sens (<3.5-17.0) ng/L Total Protein (6.5-8.0) g/dL Albumin (3.5-5.0) g/dL Beta HCG, Quant mIU/mL Ethyl Alcohol mg/dL COVID-19 ([facility]) Negative (Negative) COVID-19 Clin Com See Note ECG Data Attestation: I personally reviewed and interpreted this ECG as follows: Prior ECG tracings: available for review Interpretation: Sinus tachycardia,[id number], no STEMI Critical Care Time Critical Care Time Critical Care Time: Yes Total Critical Care Time: 45 Attestation: I personally attest to this time spent taking care of the patient. Discharge Plan Discharge Clinical Impression: Cardiac arrest, Substance use disorder, Asthma Patient Disposition: [facility] Transfer Details: CICU at [facility] Prescriptions: No Action albuterol sulfate [Ventolin HFA] 90 mcg/actuation HFA aerosol inhaler 2 puff inhalation Q6H PRN (Reason: Shortness Of Breath) 0RF prednisone 20 mg tablet 40 mg PO DAILY 5 Days Qty: 10 0RF albuterol sulfate [Ventolin HFA] 90 mcg/actuation HFA aerosol inhaler 2 puff inhalation Q4-6H PRN (Reason: shortness of breath or wheezing) Qty: 6.7 0RF Flovent HFA 110 mcg/actuation HFA aerosol inhaler 1 puff inhalation BID Qty: 12 0RF Rx Instructions: administer with spacer
--- NOTE | 2021-11-26 00:51 | PC.NURSE ---
call out to [facility] regarding transfer @[phone]
[2021-11-26 00:58] LABS: Glucose, Whole Blood 258 mg/dL (60-115)
[2021-11-26 01:01] LABS: Band Neutrophils Percent 3 % (3-5); Eosinophils Absolute Manual 1.2 X10*3/uL (0.0-0.4); Eosinophils Percent Manual 7 % (0-4); Lymphocytes Absolute Manual 5.1 X10*3/uL (1.2-4.9); Lymphocytes Percent Manual 29 % (20-40); Metamyelocytes Absolute 0.2 X10*3/uL; Metamyelocytes Percent 1 %; Monocytes Absolute Manual 0.7 X10*3/uL (0.1-1.2); Monocytes Percent Manual 4 % (2-11); Neutrophils Absolute Manual 10.4 X10*3/uL (2.0-8.3); Neutrophils Percent Manual 56 % (45-73); Nucleated Red Blood Cells 2 /100WBC (0-0)
[2021-11-26 01:03] LABS: Platelet Estimate NORMAL (NORMAL); Platelet Morphology Comment NORMAL; RBC Morphology NORMAL; Toxic Vacuolation PRESENT
[2021-11-26 01:06] VITALS: BMI 30.2
[2021-11-26 01:08] LABS: Alanine Aminotransferase 60 U/L (0-31); Albumin Level 3.5 g/dL (3.5-5.0); Alkaline Phosphatase 112 U/L (39-117); Anion Gap 34 (12-20); Aspartate Amino Transferase 66 U/L (5-31); Bilirubin Total 0.3 mg/dL (0.0-1.0); Blood Urea Nitrogen 12 mg/dL (9-16); Calcium 9.3 mg/dL (8.4-10.2); Carbon Dioxide 12 mmol/L (22-29); Chloride 108 mmol/L (96-108); Estimated Glomerular Filt Rate 47; Ethanol < 10 mg/dL; Glucose Random 284 mg/dL (60-115); Potassium 5.7 mmol/L (3.3-5.1); Sodium 148 mmol/L (135-145)
[2021-11-26 01:10] LABS: Troponin-I High Sensitivity 5.7 ng/L (<3.5-17.0)
--- NOTE | 2021-11-26 01:14 | PC.NURSE ---
pt came in cardiac arrest please see documentation sheet. Pt was medicated per MAR
--- NOTE | 2021-11-26 01:22 | ECG_ITS ---
Test Reason : CARDIAC ARREST Blood Pressure : / mmHG Vent. Rate : 112 BPM Atrial Rate : 112 BPM P-R Int : 124 ms QRS Dur : 108 ms QT Int : 394 ms P-R-T Axes : 070 104 066 degrees QTc Int : 537 ms AGE AND GENDER SPECIFIC ECG ANALYSIS Sinus tachycardia Rightward axis ST elevation consider lateral injury or acute infarct Prolonged QT ACUTE AL / STEMI Abnormal ECG When compared with ECG of 26-NOV-2021 00:30, Significant changes have occurred Referred By: Alicia Alas Electronically Signed By:DEUCE BAILEY MD
[2021-11-26 01:38] LABS: COVID-19 Test Negative (Negative)
[2021-11-26 01:46] LABS: Lactic Acid 17.3 mmol/L (0.5-2.0)
[2021-11-26 01:55] LABS: HCG Quantitative < 2 mIU/mL
--- NOTE | 2021-11-26 01:58 | PC.NURSE ---
call out to [facility] @[phone] spoke to jessica
--- NOTE | 2021-11-26 02:01 | PC.NURSE ---
[facility] declined due weather and no ground ambulance.
--- NOTE | 2021-11-26 02:02 | PC.NURSE ---
[phone] CCU M3 ROOM [id number]
[2021-11-26] MEDS: Calcium Gluconate/NaCl,Iso-Osm 2 GM/100 ML PLAST..BAG IV (02:10)
[2021-11-26] MEDS: Lidocaine HCl/D5W 2 GM/250 ML IV.SOLN 7.5 GM IVCONT (02:35)
[2021-11-26 02:41] LABS: Reflex Lactate? Lactic Acid Added
--- NOTE | 2021-11-26 02:57 | PC.NURSE ---
0105 Norepi started at 4 mcg 0115 Norepi adjusted at 2 mcg 0120 Norepi drip stopped for elevated BP 0135 Norepi reastarted to 2 mcg
--- NOTE | 2021-11-26 09:59 | ECG_ITS ---
Test Reason : chest pain Blood Pressure : / mmHG Vent. Rate : 149 BPM Atrial Rate : 149 BPM P-R Int : 200 ms QRS Dur : 236 ms QT Int : 376 ms P-R-T Axes : 000 220 192 degrees QTc Int : 592 ms Wide QRS tachycardia s/o VT Abnormal ECG When compared with ECG of 26-NOV-2021 01:21, Wide QRS tachycardia has replaced Normal sinus rhythm Referred By: Generic ED Physician Electronically Signed By:DEUCE BAILEY MD
== END 2021-11-26 02:59 | disposition short-term general hospital (02) ==
LOC: HO.ED 01:39
PROVIDERS: Physician Assistant; Emergency Provider Student in an Organized Health Care Education/Training Program
DX: I46.9 Cardiac arrest, cause unspecified (principal); F11.10 Opioid abuse, uncomplicated; J45.909 Unspecified asthma, uncomplicated; R00.0 Tachycardia, unspecified; F17.210 Nicotine dependence, cigarettes, uncomplicated; Z71.6 Tobacco abuse counseling; Z20.822 Contact with and (suspected) exposure to COVID-19; Z79.899 Other long term (current) drug therapy
CPT/HCPCS: 71045; 80053; 82077; 82947; 83605; 83735; 84484; 84702; 85007; 85027; 87040; 87635; 92960; 93005; 96365; 96366; 96375; 99285; 99291; J0171; J0282; J0610